=== PATIENT | male | born 1955 | race Caucasian/White ===

== ENCOUNTER 2019-11-19 14:30 | Outpatient (CLI) | payer BC, SELFPAY ==
[2019-11-19 14:45] LABS: Basophils Absolute Auto 0.1 K/mm3 (0.0-0.1); Basophils Percent Auto 0.6 % (0.2-1.2); Eosinophils Absolute Auto 0.4 K/mm3 (0-0.3); Eosinophils Percent Auto 4.7 % (0-4.4); Hematocrit 42.1 % (42.0-52.0); Hemoglobin 14.6 g/dL (14.0-18.0); Immature Granulocyte Absolute 0.04 K/mm3 (0.00-0.031); Immature Granulocyte Percent A 0.4 % (0-0.5); Lymphocytes Absolute Auto 1.89 K/mm3 (0.9-3.2); Lymphocytes Percent Auto 20.9 % (18.3-44.2); Mean Corpuscular HGB Conc 34.7 g/dl (32-36); Mean Corpuscular Hemoglobin 31.4 pg (26-34); Mean Corpuscular Volume 90.5 fl (80-100); Mean Platelet Volume 13.9 fl (7.4-10.4); Neutrophils Absolute Auto 5.6 K/mm3 (1.3-6.7); Neutrophils Percent Auto 62.4 % (45.5-73.1); Platelet Count Result 37 k/mm3 (150-375); Red Blood Count 4.65 M/mm3 (4.6-6.20); Red Cell Distribution Width 13.3 % (11.5-14.5)
[2019-11-19 16:48] LABS: Iron 131 ug/dL (49-181)
[2019-11-19 16:54] LABS: Alanine Aminotransferase 12 U/L (4-50); Albumin Level 4.2 g/dL (3.5-5.1); Alkaline Phosphatase 65 U/L (38-126); Anion Gap 5 mmol/L (8-16); Aspartate Amino Transferase 19 U/L (17-59); Bilirubin,Total 0.9 mg/dL (0.2-1.3); Blood Urea Nitrogen 16 mg/dL (9-20); Calcium 9.3 mg/dL (8.4-10.2); Carbon Dioxide 27 mmol/L (22-30); Chloride 106 mmol/L (98-107); Estimated Glomerular Filt Rate > 60; Glucose 93 mg/dL (75-110); Lactate Dehydrogenase 326 U/L (313-618); Sodium 138 mmol/L (137-145)
[2019-11-19 17:00] LABS: Percent Iron Saturation 44 % (20-50)
== END 2019-11-19 14:31 | disposition home or self-care (01) ==
PROVIDERS: PCP Family Medicine; Visit Provider Internal Medicine Hematology & Oncology
DX: D69.59 Other secondary thrombocytopenia (principal)
CPT/HCPCS: 36415; 80053; 82607; 82728; 83540; 83550; 83615; 85025

== ENCOUNTER 2019-11-27 08:23 | Outpatient (CLI) | payer BC, SELFPAY ==
--- NOTE | ~2019-11-27 | US_ITS ---
EXAMINATION: US abdomen complete EXAM DATE: 11/27/2019 09:04 INDICATION: Thrombocytopenia. TECHNIQUE: Multiple grayscale and Doppler images of the complete abdomen were obtained (by a technolo gist who performed the scan) and subsequently reviewed. There is no prior study for comparison. FINDINGS: The abdominal aorta is normal in caliber. Visualized portion IVC is patent. The pancreatic head a nd body are normal in appearance. The pancreatic tail is not visualized. The liver has normal echogenicity and contour. There are no focal liver lesions identified. There is no evidence of intrahepatic biliary duct dilation. Portal venous flow was seen in the hepatopedal , normal direction and has normal Doppler waveform. Common bile duct measures 6 mm, which is normal. The gallbladder wall is normal in thickness, with ex pected amount of distention. No sonographic evidence of pericholecystic fluid. There is no cholelit hiases. Technologist performing exam reports patient did not demonstrate sonographic Harding's sign. Please note that this sign is less reliable in patients who have received pain medication. Right kidney: There is normal contour and echogenicity. Renal cortical thinning. It measures 11.5 x 5 .3 x 6.1 centimeters. There are no focal renal lesions identified. There is no hydronephrosis. Left kidney: There is normal contour and echogenicity. Renal cortical thinning. It measures 10.1 x 4. 9 x 5.1 centimeters. There are no focal renal lesions identified. There is no hydronephrosis. The spleen measures 12.0 x 3.8 centimeters and is morphologically normal. IMPRESSION: 1. Mild bilateral renal cortical thinning, atrophy. 2. Normal spleen size. Reviewed, dictated and finalized at location A.
== END 2019-11-27 08:24 | disposition home or self-care (01) ==
PROVIDERS: PCP Family Medicine; Visit Provider Internal Medicine Hematology & Oncology
DX: D69.59 Other secondary thrombocytopenia (principal)
CPT/HCPCS: 76700

== ENCOUNTER 2019-12-27 14:56 | Outpatient (CLI) | payer BC, SELFPAY ==
[2019-12-27 15:12] LABS: Basophils Absolute Auto 0.1 K/mm3 (0.0-0.1); Basophils Percent Auto 0.6 % (0.2-1.2); Eosinophils Absolute Auto 0.4 K/mm3 (0-0.3); Eosinophils Percent Auto 4.6 % (0-4.4); Hematocrit 41.9 % (42.0-52.0); Hemoglobin 14.2 g/dL (14.0-18.0); Immature Granulocyte Absolute 0.02 K/mm3 (0.00-0.031); Immature Granulocyte Percent A 0.3 % (0-0.5); Lymphocytes Absolute Auto 1.99 K/mm3 (0.9-3.2); Lymphocytes Percent Auto 25.7 % (18.3-44.2); Mean Corpuscular HGB Conc 33.9 g/dl (32-36); Mean Corpuscular Volume 91.5 fl (80-100); Monocytes Absolute Auto 0.7 K/mm3 (0.1-0.6); Monocytes Percent Auto 9.3 % (2.6-8.5); Neutrophils Absolute Auto 4.6 K/mm3 (1.3-6.7); Neutrophils Percent Auto 59.5 % (45.5-73.1); Platelet Count Result 50 k/mm3 (150-375); Red Blood Count 4.58 M/mm3 (4.6-6.20); Red Cell Distribution Width 13.1 % (11.5-14.5); White Blood Count 7.8 K/mm3 (4.5-10.0)
[2019-12-27 16:48] LABS: Alanine Aminotransferase 14 U/L (4-50); Albumin Level 4.4 g/dL (3.5-5.1); Alkaline Phosphatase 55 U/L (38-126); Anion Gap 8 mmol/L (8-16); Aspartate Amino Transferase 22 U/L (17-59); Bilirubin,Total 0.6 mg/dL (0.2-1.3); Blood Urea Nitrogen 12 mg/dL (9-20); Calcium 9.3 mg/dL (8.4-10.2); Carbon Dioxide 27 mmol/L (22-30); Chloride 108 mmol/L (98-107); Estimated Glomerular Filt Rate > 60; Glucose 102 mg/dL (75-110); Sodium 143 mmol/L (137-145)
== END 2019-12-27 14:57 | disposition home or self-care (01) ==
LOC: ANHLAB 14:58
PROVIDERS: PCP Family Medicine; Visit Provider Internal Medicine Hematology & Oncology
DX: D69.59 Other secondary thrombocytopenia (principal)
CPT/HCPCS: 36415; 80053; 85025

== ENCOUNTER 2020-07-03 15:18 | Outpatient (CLI) | payer BC, SELFPAY ==
[2020-07-03 15:34] LABS: Basophils Absolute Auto 0.1 K/mm3 (0.0-0.1); Basophils Percent Auto 0.6 % (0.2-1.2); Eosinophils Absolute Auto 0.5 K/mm3 (0-0.3); Eosinophils Percent Auto 5.1 % (0-4.4); Hemoglobin 15.2 g/dL (14.0-18.0); Immature Granulocyte Absolute 0.02 K/mm3 (0.00-0.031); Immature Granulocyte Percent A 0.2 % (0-0.5); Immature Platelet Fraction Pct 19.5 % (0.9-11.2); Lymphocytes Absolute Auto 1.76 K/mm3 (0.9-3.2); Lymphocytes Percent Auto 19.8 % (18.3-44.2); Mean Corpuscular HGB Conc 34.5 g/dl (32-36); Mean Corpuscular Hemoglobin 33.9 pg (26-34); Mean Corpuscular Volume 98.2 fl (80-100); Mean Platelet Volume 13.3 fl (7.4-10.4); Monocytes Absolute Auto 0.8 K/mm3 (0.1-0.6); Neutrophils Absolute Auto 5.8 K/mm3 (1.3-6.7); Neutrophils Percent Auto 65.3 % (45.5-73.1); Platelet Count Result 39 k/mm3 (150-375); Red Blood Count 4.48 M/mm3 (4.6-6.20); Red Cell Distribution Width 13.1 % (11.5-14.5); White Blood Count 8.9 K/mm3 (4.5-10.0)
== END 2020-07-03 15:19 | disposition home or self-care (01) ==
LOC: ANHLAB 15:20
PROVIDERS: PCP Family Medicine; Visit Provider Internal Medicine Hematology & Oncology
DX: D69.59 Other secondary thrombocytopenia (principal)
CPT/HCPCS: 36415; 85025; 85055

== ENCOUNTER 2020-08-08 21:40 | Emergency (ER) | payer BC, SELFPAY ==
--- NOTE | ~2020-08-08 | XR_ITS ---
EXAMINATION: XR chest 2V DATE: 08/08/2020 22:37 INDICATION: Prior atrial fibrillation presenting with one day of palpitations. TECHNIQUE: PA and lateral views of the chest were obtained. COMPARISON: Chest radiograph dated 08/28/2015 FINDINGS: The lungs remain clear with no focal airspace opacities, pulmonary edema, pleural effusion or pneumot horax. The cardiomediastinal silhouette is normal. There are bridging osteophytes at multiple levels in the spine, consistent with diffuse idiopathic skeletal hyperostosis (DISH). Old anterior right six th and seventh rib fractures. IMPRESSION: 1. No acute cardiopulmonary disease. Reviewed, dictated and finalized at location A.
[2020-08-08 22:20] VITALS: BP 132/84; PULSE 66; RESP 18; TEMP 35.9; O2SAT 98
--- NOTE | 2020-08-08 22:25 | ECG_ITS ---
Measurements Intervals [place] Rate: 62 P: 58 CO: 199 QRS: -37 QRSD: 92 T: 21 QT: 404 QTc: 412 Interpretive Statements SINUS RHYTHM LEFT AXIS DEVIATION INCOMPLETE RIGHT BUNDLE BRANCH BLOCK POOR R WAVE PROGRESSION, ANTERIOR LEADS BORDERLINE ECG Electronically Signed On 08-09-2020 7:22:37 CDT by Benjamin Collier D.O.
[2020-08-08 23:27] LABS: Basophils Absolute Auto 0.1 K/mm3 (0.0-0.1); Basophils Percent Auto 0.6 % (0.2-1.2); Eosinophils Absolute Auto 0.4 K/mm3 (0-0.3); Eosinophils Percent Auto 4.6 % (0-4.4); Hemoglobin 14.9 g/dL (14.0-18.0); Immature Granulocyte Absolute 0.02 K/mm3 (0.00-0.031); Immature Granulocyte Percent A 0.2 % (0-0.5); Immature Platelet Fraction Pct 18.1 % (0.9-11.2); Lymphocytes Absolute Auto 1.73 K/mm3 (0.9-3.2); Lymphocytes Percent Auto 18.4 % (18.3-44.2); Mean Corpuscular HGB Conc 34.7 g/dl (32-36); Mean Corpuscular Hemoglobin 34.3 pg (26-34); Mean Corpuscular Volume 99.1 fl (80-100); Mean Platelet Volume 12.6 fl (7.4-10.4); Monocytes Percent Auto 10.1 % (2.6-8.5); Neutrophils Absolute Auto 6.2 K/mm3 (1.3-6.7); Neutrophils Percent Auto 66.1 % (45.5-73.1); Platelet Count Result 48 k/mm3 (150-375); Red Blood Count 4.34 M/mm3 (4.6-6.20); Red Cell Distribution Width 12.6 % (11.5-14.5); White Blood Count 9.4 K/mm3 (4.5-10.0)
[2020-08-08 23:35] LABS: INR 1.1; Prothrombin Time 14.9 Seconds (11.1-14.7)
[2020-08-08 23:36] LABS: Anion Gap 8 mmol/L (8-16); Blood Urea Nitrogen 12 mg/dL (9-20); Calcium 9.5 mg/dL (8.4-10.2); Carbon Dioxide 24 mmol/L (22-30); Chloride 107 mmol/L (98-107); Estimated CRCL calculation 72 ml/min; Estimated Glomerular Filt Rate > 60; Glucose 99 mg/dL (75-110); Partial Thromboplastin Time 27.8 SECONDS (22.3-36.8); Potassium 3.9 mmol/L (3.4-5.0); Sodium 139 mmol/L (137-145)
[2020-08-08 23:48] LABS: Troponin I < 0.012 ng/mL (0.000-0.034)
[2020-08-09] VITALS (10 sets, daily range): BP systolic 100–127; BP diastolic 68–86; PULSE 60–62; RESP 13–23; O2SAT 96–100
--- NOTE | 2020-08-09 01:18 | ED.GENADULT ---
HPI - General Adult General Chief complaint: Arrhythmia/Palpitations Stated complaint: palpations Time Seen by Provider: 08/09/20 00:58 History of Present Illness HPI narrative: Patient is 64-year-old gentleman presents the emergency department with chief complaint of palpitations. Patient reports that he has history of atrial fibrillation and reports that he felt as though he went into A. fib today. The patient took an extra dose of his metoprolol and subsequently it was still irregular but by the time he arrived to the emergency department and returned back to a baseline sinus rhythm. Patient states that he is not on anticoagulants due to thrombocytopenia reports that he is followed by cardiology with Dr. Baxter. The patient denies chest pain denies shortness of breath. Related Data Home Medications Medication Instructions Recorded Confirmed metoprolol succinate 50 mg 50 mg PO DAILY 10/12/19 10/16/19 tablet,extended release 24 hr Allergies Allergy/AdvReac Type Severity Reaction Status Date / Time No Known Allergies Allergy Verified 08/09/20 00:51 Review of Systems Review of Systems: Narrative: A 10 system review of systems was completed on the patient and is negative except for what is stated in the HPI. Nursing and ancillary documentation was reviewed. [facility] Past Medical History Medical History (Updated 08/09/20 @ 01:20 by Ezekiel Peacock MD) AF (paroxysmal atrial fibrillation) Atrial fibrillation medically converted BMI 29.0-29.9,adult Chronic ITP (idiopathic thrombocytopenia) Colon cancer screening Erectile dysfunction Hypertension Prostate cancer screening Prostate cancer screening Thrombocytopenia Surgical History Surgical History History of bone marrow biopsy Family History Family History Mother Family history of cardiovascular disease Father Malignant neoplasm of prostate Social History Social History Smoking status: Never smoker Second hand tobacco smoke exposure: No Alcohol intake: current Substance use: never Substance use type: does not use Gender identity (if verbalized by the patient): Male Exam Narrative: Exam Narrative: GENERAL: Well-appearing, well-nourished, and in no acute distress. HEAD: Normocephalic, atraumatic. EYES: PERRLA and EOMI. ENT: Nares clear, no rhinorrhea or epistaxis. Mucous membranes moist. NECK: Supple. CHEST: Clear to auscultation. No respiratory distress. HEART: Regular rate and rhythm. No murmur heard. Normal peripheral pulses. ABDOMEN: Soft, nontender, nondistended, normal active bowel sounds. EXTREMITIES: Normal range of motion. No edema. SKIN: Warm, dry, no rash. NEURO: No focal deficits. Alert and oriented x3. PSYCH: Normal mood and affect. Course Course Emergency Course: Patient has been in sinus rhythm since being in the emergency department. 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 Vital Signs Vital signs: Vital Signs Temperature 35.9 C L 08/08/20 22:20 Pulse Rate 66 08/08/20 22:20 Respiratory Rate 18 08/08/20 22:20 Blood Pressure 132/84 08/08/20 22:20 Pulse Oximetry 98 08/08/20 22:20 Temperature 35.9 C L 08/08/20 22:20 Pulse Rate 66 08/08/20 22:20 Respiratory Rate 18 08/08/20 22:20 Blood Pressure 132/84 08/08/20 22:20 Pulse Oximetry 98 08/08/20 22:20 Medical Decision Making Vital Signs Vital Signs: Vital Signs Temperature 35.9 C L 08/08/20 22:20 Pulse Rate 66 08/08/20 22:20 Respiratory Rate 18 08/08/20 22:20 Blood Pressure 132/84 08/08/20 22:20 Pulse Oximetry 98 08/08/20 22:20 Temperature 35.9 C L 08/08/20 22:20 Pulse Ra
== END 2020-08-09 02:03 | disposition home or self-care (01) ==
PROVIDERS: Emergency Provider Emergency Medicine; PCP Family Medicine
DX: I48.0 Paroxysmal atrial fibrillation (principal); R00.2 Palpitations; I10 Essential (primary) hypertension; D69.3 Immune thrombocytopenic purpura
CPT/HCPCS: 36415; 71046; 80048; 84484; 85025; 85055; 85610; 85730; 93005; 99284

== ENCOUNTER 2021-01-08 15:13 | Outpatient (CLI) | payer BC, SELFPAY ==
[2021-01-08 15:30] LABS: Basophils Absolute Auto 0.1 K/mm3 (0.0-0.1); Basophils Percent Auto 0.5 % (0.2-1.2); Eosinophils Absolute Auto 0.3 K/mm3 (0-0.3); Eosinophils Percent Auto 3.3 % (0-4.4); Hematocrit 43.2 % (42.0-52.0); Hemoglobin 14.8 g/dL (14.0-18.0); Immature Granulocyte Absolute 0.02 K/mm3 (0.00-0.031); Immature Granulocyte Percent A 0.2 % (0-0.5); Immature Platelet Fraction Pct 17.9 % (0.9-11.2); Lymphocytes Absolute Auto 1.65 K/mm3 (0.9-3.2); Lymphocytes Percent Auto 17.6 % (18.3-44.2); Mean Corpuscular HGB Conc 34.3 g/dl (32-36); Mean Corpuscular Hemoglobin 34.1 pg (26-34); Mean Corpuscular Volume 99.5 fl (80-100); Mean Platelet Volume 13.1 fl (7.4-10.4); Monocytes Absolute Auto 0.9 K/mm3 (0.1-0.6); Monocytes Percent Auto 9.3 % (2.6-8.5); Neutrophils Absolute Auto 6.5 K/mm3 (1.3-6.7); Neutrophils Percent Auto 69.1 % (45.5-73.1); Platelet Count Result 35 k/mm3 (150-375); Red Blood Count 4.34 M/mm3 (4.6-6.20); White Blood Count 9.4 K/mm3 (4.5-10.0)
== END 2021-01-08 15:14 | disposition home or self-care (01) ==
LOC: ANHLAB 15:14
PROVIDERS: PCP Family Medicine; Visit Provider Internal Medicine Hematology & Oncology
DX: D69.59 Other secondary thrombocytopenia (principal)
CPT/HCPCS: 36415; 85025; 85055

== ENCOUNTER 2021-07-16 14:17 | Outpatient (CLI) | payer OTHER, SELFPAY ==
[2021-07-16 14:42] LABS: Basophils Percent Auto 0.4 % (0.2-1.2); Eosinophils Absolute Auto 0.2 K/mm3 (0-0.3); Eosinophils Percent Auto 2.9 % (0-4.4); Hematocrit 40.9 % (42.0-52.0); Hemoglobin 14.1 g/dL (14.0-18.0); Immature Granulocyte Absolute 0.02 K/mm3 (0.00-0.031); Immature Granulocyte Percent A 0.3 % (0-0.5); Immature Platelet Fraction Pct 18.6 % (0.9-11.2); Lymphocytes Absolute Auto 1.42 K/mm3 (0.9-3.2); Lymphocytes Percent Auto 20.3 % (18.3-44.2); Mean Corpuscular HGB Conc 34.5 g/dl (32-36); Mean Corpuscular Hemoglobin 34.6 pg (26-34); Mean Corpuscular Volume 100.5 fl (80-100); Mean Platelet Volume 12.8 fl (7.4-10.4); Monocytes Absolute Auto 0.7 K/mm3 (0.1-0.6); Monocytes Percent Auto 9.9 % (2.6-8.5); Neutrophils Absolute Auto 4.6 K/mm3 (1.3-6.7); Neutrophils Percent Auto 66.2 % (45.5-73.1); Platelet Count Result 37 k/mm3 (150-375); Red Blood Count 4.07 M/mm3 (4.6-6.20); Red Cell Distribution Width 13.1 % (11.5-14.5)
== END 2021-07-16 14:18 | disposition home or self-care (01) ==
LOC: ANHLAB 14:20
PROVIDERS: PCP Family Medicine; Visit Provider Internal Medicine Hematology & Oncology
DX: D69.59 Other secondary thrombocytopenia (principal)
CPT/HCPCS: 36415; 85025; 85055

== ENCOUNTER 2021-11-30 09:42 | Outpatient (CLI) | payer OTHER, SELFPAY ==
[2021-11-30 10:01] LABS: Hematocrit 45.1 % (42.0-52.0); Hemoglobin 15.5 g/dL (14.0-18.0); Immature Platelet Fraction Pct 28.8 % (0.9-11.2); Mean Corpuscular HGB Conc 34.4 g/dl (32-36); Mean Corpuscular Hemoglobin 36.6 pg (26-34); Mean Corpuscular Volume 106.6 fl (80-100); Mean Platelet Volume 13.2 fl (7.4-10.4); Platelet Count Result 51 k/mm3 (150-375); Red Blood Count 4.23 M/mm3 (4.6-6.20); White Blood Count 4.8 K/mm3 (4.5-10.0)
[2021-11-30 10:21] LABS: Anion Gap 12 mmol/L (8-16); Blood Urea Nitrogen 14 mg/dL (9-20); Calcium 8.9 mg/dL (8.4-10.2); Carbon Dioxide 26 mmol/L (22-30); Chloride 98 mmol/L (98-107); Estimated Glomerular Filt Rate > 60; Glucose 133 mg/dL (65-110); Potassium 4.5 mmol/L (3.4-5.0); Sodium 136 mmol/L (137-145)
== END 2021-11-30 09:43 | disposition home or self-care (01) ==
PROVIDERS: PCP Family Medicine; Visit Provider Internal Medicine Cardiovascular Disease
DX: I95.0 Idiopathic hypotension (principal); E86.0 Dehydration; K92.1 Melena
CPT/HCPCS: 36415; 80048; 85027; 85055

== ENCOUNTER 2022-01-19 16:26 | Outpatient (CLI) | payer OTHER, SELFPAY ==
[2022-01-19 17:21] LABS: Basophils Percent Auto 0.6 % (0.2-1.2); Eosinophils Absolute Auto 0.1 K/mm3 (0-0.3); Eosinophils Percent Auto 1.5 % (0-4.4); Hematocrit 40.9 % (42.0-52.0); Hemoglobin 13.8 g/dL (14.0-18.0); Immature Granulocyte Absolute 0.02 K/mm3 (0.00-0.031); Immature Granulocyte Percent A 0.3 % (0-0.5); Immature Platelet Fraction Pct 24.1 % (0.9-11.2); Lymphocytes Absolute Auto 1.65 K/mm3 (0.9-3.2); Lymphocytes Percent Auto 22.7 % (18.3-44.2); Mean Corpuscular HGB Conc 33.7 g/dl (32-36); Mean Corpuscular Hemoglobin 36.5 pg (26-34); Mean Corpuscular Volume 108.2 fl (80-100); Monocytes Absolute Auto 1.3 K/mm3 (0.1-0.6); Monocytes Percent Auto 17.5 % (2.6-8.5); Neutrophils Absolute Auto 4.2 K/mm3 (1.3-6.7); Neutrophils Percent Auto 57.4 % (45.5-73.1); Platelet Count Result 57 k/mm3 (150-375); Red Blood Count 3.78 M/mm3 (4.6-6.20); Red Cell Distribution Width 14.3 % (11.5-14.5); White Blood Count 7.3 K/mm3 (4.5-10.0)
[2022-01-19 17:32] LABS: Alanine Aminotransferase 56 U/L (6-50); Albumin Level 3.9 g/dL (3.5-5.1); Alkaline Phosphatase 83 U/L (38-126); Anion Gap 2 mmol/L (8-16); Aspartate Amino Transferase 67 U/L (17-59); Bilirubin,Total 0.8 mg/dL (0.2-1.3); Blood Urea Nitrogen 11 mg/dL (9-20); Calcium 8.6 mg/dL (8.4-10.2); Carbon Dioxide 26 mmol/L (22-30); Chloride 104 mmol/L (98-107); Estimated Glomerular Filt Rate > 60; Glucose 93 mg/dL (65-110); Magnesium 1.9 mg/dL (1.6-2.3); Sodium 132 mmol/L (137-145)
[2022-01-19 17:55] LABS: Macrocytosis 1+ (NORMAL); Platelet Estimate Decreased (Adequate)
[2022-01-19 17:57] LABS: Ovalocytes 1+ (NORMAL)
[2022-01-19 17:58] LABS: Anisocytosis 1+ (NORMAL); Schistocytes None Seen (NORMAL)
--- NOTE | 2022-01-29 12:42 | PM.IMPN ---
Progress Note: A&P Assessment and Plan (1) Chronic idiopathic thrombocytopenia: Code(s): D69.3 - Immune thrombocytopenic purpura Status: Acute Assessment and Plan: Stable (2) Paroxysmal atrial fibrillation: Code(s): I48.0 - Paroxysmal atrial fibrillation Status: Acute Assessment and Plan: Stable Subjective Date/time seen: 01/29/22 12:42 Patient was seen during the morning rounds today. Patient is feeling better. No shortness of breaths or chest pain. Mood stable Exam Narrative: Const:?? General: comfortab le and no acute di stress HENMT:?? Mouth: Yes moist m ucous membranes Eyes:?? General: appearanc e normal, both eye s and all related structures? Sclera : sclerae normal Neck:?? Neck: supple Resp:?? Effort & Inspectio n: normal respirat ory effort? Auscul tation: clear to a uscultation bilate rally Cardio:?? Rate: regular rate ? Rhythm: regular rhythm? Heart soun ds: no murmurs GI:?? GI Palp: Yes Soft to palpation and N o Tenderness to pa lpation present (G I) Skin:?? General skin exam: normal color Neuro:?? Speech: normal spe ech? Motor exam (n euro): 5/5 motor s trength present th roughout Extrem:?? General: normal to inspection Psych:?? Mental Status: men elvin status grossly normal? Affect: n ormal affect Quality 01/29/2022 Patient is feeling much better now. Patient heart rate is controlled. Patient platelets are stable. Plan is to monitor closely.
== END 2022-01-19 16:27 | disposition home or self-care (01) ==
LOC: ANHLAB 16:28
PROVIDERS: PCP Family Medicine; Visit Provider Nurse Practitioner Adult Health
DX: R55 Syncope and collapse (principal)
CPT/HCPCS: 36415; 80053; 83735; 85025; 85055

== ENCOUNTER 2022-01-28 10:26 | Inpatient (IN) | payer OTHER, SELFPAY ==
[2022-01-28] VITALS (21 sets, daily range): BP systolic 107–133; BP diastolic 37–86; PULSE 61–84; RESP 15–23; TEMP 36.6–37.4; O2SAT 95–100; BMI 25.2
--- NOTE | 2022-01-28 | ECHO_ITS ---
Patient Info Name: Reji Sanon Age: 66 years : 1955 Gender: Male Ht: 71 in Wt: 180 lbs BSA: 2.03 m2 HR: 78 bpm BP: 121 / 80 mmHg Heart Rhythm: Sinus Rhythm Technical Quality: Good Exam Date: 01/28/2022 9:33 AM Exam Location: [facility] Pulmonary Exam Room: [facility] Patient Status: Inpatient Admit Date: 01/28/2022 Staff Ordering Physician: Chacorta Rodriguez MD (herminia/rose) Allergist: Petra Oviedo RCS Attending Provider: Chacorta Rodriguez MD (herminia/rose) Referring Physician: Michael CABA; Exam Type: CA echo dop color flow w con Study Info Indications - v tach Complete two-dimensional, color flow and Doppler transthoracic echocardiogram is performed with contrast to opacify the left ventricle and to improve the deliniation of the left ventricle endocardial borders. Contrast/Agitated Saline Contrast/Ag. Saline: Definity Amount: 2.00 ml Administered By: Maria Esther Mancilla RN Existing IV Access: Yes IV Access Condition: patent with no signs of infiltration Summary 1. Left ventricular systolic function is normal, estimated at 65-70%. 2. Right ventricular systolic function is normal. 3. Right atrial chamber dimension is mildly enlarged. 4. There is mild tricuspid valve regurgitation. Left Ventricle Left ventricular chamber dimension is normal. Left ventricular systolic function is normal, estimated at 65-70%. There is no increased left ventricular wall thickness. The left ventricular diastolic function is normal. Right Ventricle Right ventricular chamber dimension is normal. Right ventricular systolic function is normal. Left Atria Left atrial chamber dimension is normal. Right Atria Right atrial chamber dimension is mildly enlarged. Atrial Septum Intact interatrial septum visualized by color flow imaging. Aortic Valve The aortic valve is trileaflet. There is no aortic valve stenosis. There is no aortic valve regurgitation. Pulmonic Valve The pulmonic valve is not well visualized. Mitral Valve The mitral valve has normal leaflets. There is no mitral valve stenosis. There is trace mitral valve regurgitation. Tricuspid Valve The tricuspid valve leaflets are normal. There is no significant tricuspid valve stenosis. There is mild tricuspid valve regurgitation. Pericardium/Pleural There is no pericardial effusion. Inferior Vena Cava Normal inferior vena cava with >50% collapse upon inspiration consistent with normal right atrial pressure, 3 mmHg. Aorta The aortic root size at the sinus of Valsalva is normal. Left Ventricular Outflow Tract Name Value Normal LVOT 2D LVOT Diameter 1.95 cm LVOT Doppler LVOT Peak Gradient 4 mmHg LVOT Mean Gradient 2 mmHg LVOT VTI 20.47 cm LVOT VTI/AV VTI Ratio 0.85 LVOT Stroke Volume 61.29 ml LVOT CO 11.85 l/min LVOT CI 5.84 L/min/m2 Pulmonic Valve
--- NOTE | ~2022-01-28 | NM_ITS ---
EXAMINATION: NM miguel stress w perfusion DATE: 01/28/2022 14:15 INDICATION: Ventricular tachycardia. TECHNIQUE: Rest images were obtained following intravenous administration of 9.423 mCi Tc99m tetrofos min (Myoview). The patient was infused intravenously with Lexiscan (regadenoson). Then, 29.942 mCi Tc 99m tetrofosmin (Myoview) was administered intravenously, and stress images were obtained. Data was r econstructed into short axis and horizontal and vertical long axis SPECT images. Gated SPECT images w ere also obtained. COMPARISON: None. FINDINGS: There is no definite reversible or fixed perfusion abnormality to suggest ischemia or infar ction. There is no segmental wall motion abnormality. Left ventricular ejection fraction measures > 70%. IMPRESSION: 1. No definite ischemia or infarct. 2. Normal left ventricular ejection fraction measuring >70%. Reviewed, dictated and finalized at location A. M MECHANIC
[2022-01-28 07:57] LABS: Basophils Percent Auto 0.5 % (0.2-1.2); Eosinophils Absolute Auto 0.2 K/mm3 (0-0.3); Eosinophils Percent Auto 2.3 % (0-4.4); Hematocrit 40.7 % (42.0-52.0); Hemoglobin 13.9 g/dL (14.0-18.0); Immature Granulocyte Absolute 0.02 K/mm3 (0.00-0.031); Immature Granulocyte Percent A 0.3 % (0-0.5); Lymphocytes Percent Auto 13.8 % (18.3-44.2); Mean Corpuscular HGB Conc 34.2 g/dl (32-36); Mean Corpuscular Hemoglobin 35.6 pg (26-34); Mean Corpuscular Volume 104.4 fl (80-100); Monocytes Absolute Auto 0.8 K/mm3 (0.1-0.6); Monocytes Percent Auto 11.6 % (2.6-8.5); Neutrophils Absolute Auto 4.7 K/mm3 (1.3-6.7); Neutrophils Percent Auto 71.5 % (45.5-73.1); Red Cell Distribution Width 13.9 % (11.5-14.5); White Blood Count 6.5 K/mm3 (4.5-10.0)
[2022-01-28 08:03] LABS: Anion Gap 4 mmol/L (8-16); Blood Urea Nitrogen 9 mg/dL (9-20); Calcium 8.5 mg/dL (8.4-10.2); Carbon Dioxide 25 mmol/L (22-30); Chloride 111 mmol/L (98-107); Estimated CRCL calculation 78 ml/min; Estimated Glomerular Filt Rate > 60; Glucose 96 mg/dL (65-110); Potassium 3.5 mmol/L (3.4-5.0); Sodium 140 mmol/L (137-145)
[2022-01-28 08:05] LABS: INR 1.2; Prothrombin Time 14.8 Seconds (11.1-14.7)
--- NOTE | 2022-01-28 08:06 | SUR.PREOP ---
notified of low platelet count, re draw requested
[2022-01-28 08:07] LABS: Platelet Count Result 6 k/mm3 (150-375)
[2022-01-28 08:09] LABS: Anisocytosis 1+ (NORMAL); Macrocytosis 1+ (NORMAL); Platelet Estimate Decreased (Adequate)
[2022-01-28 08:11] LABS: Schistocytes None Seen (NORMAL)
[2022-01-28 08:22] LABS: Platelet Count Result 6 k/mm3 (150-375)
--- NOTE | 2022-01-28 08:23 | SUR.PREOP ---
Pt arrived to floor with lifevest and monitor technician in place. Kept in place until physician sees.
--- NOTE | 2022-01-28 09:15 | PM.IMHP ---
H&P: HPI History of Present Illness Date/Time: 01/28/22 09:15 Chief Complaint: Acute ITP Narrative: Patient is a 66-year-old male with a history of atrial fibrillation and ITP who presented today for a cardiac catheterization. This is a patient of Dr. Baxter's. Patient was referred for coronary angiography for sustained VT and syncope. He is currently wearing a Life Vest. He is scheduled to see Dr. Everett on 02/01 for EP evaluation. Patient's last platelet count was 56, however this morning, platelet count is 6. Labs repeated which confirmed platelet count of 6. Discussed with Dr. Robles and Dr. Wallace. Will have patient admitted for acute ITP. Patient currently denies chest pain, palpitations, shortness of breath, lightheadedness, dizziness. States he feels okay. Review of Systems Review of Systems: 12-point ROS obtained. Negative, unless stated in HPI. [facility] Past Medical History Medical History (Updated 01/28/22 @ 09:24 by Chacorta Rodriguez MD) AF (paroxysmal atrial fibrillation) Atrial fibrillation medically converted BMI 29.0-29.9,adult Chronic ITP (idiopathic thrombocytopenia) Colon cancer screening Erectile dysfunction Hypertension Prostate cancer screening Prostate cancer screening Thrombocytopenia Surgical History Surgical History History of bone marrow biopsy Family History Family History Mother Family history of cardiovascular disease Father Malignant neoplasm of prostate Social History Social History Smoking status: Never smoker Second hand tobacco smoke exposure: No Alcohol intake: current Alcohol use details: consumes 2 beers or glasses of wine occasionally Substance use: never Substance use type: does not use Gender identity (if verbalized by the patient): Male Meds Home Medications and Allergies Home Medications Medication Instructions Recorded Confirmed Type metoprolol tartrate 25 mg tablet 25 mg PO PRN PRN Increased Heart 01/27/22 01/28/22 History Rate Allergy (diphenhydramine) 25 mg PO PRN Allergies 01/28/22 01/28/22 History Allergies Allergy/AdvReac Type Severity Reaction Status Date / Time No Known Allergies Allergy Verified 01/28/22 07:47 Vital Signs Vital Signs - 24 hr 01/28/22 07:26 Temperature 36.6 C Pulse Rate 65 Respiratory Rate 17 Blood Pressure 121/80 Pulse Oximetry 100 Oxygen Delivery Room Air Exam Const: General: comfortable and no acute distress HENMT: Mouth: Yes moist mucous membranes Eyes: General: appearance normal, both eyes and all related structures Sclera: sclerae normal Neck: Neck: supple Resp: Effort & Inspection: normal respiratory effort Auscultation: clear to auscultation bilaterally Cardio: Rate: regular rate Rhythm: regular rhythm Heart sounds: no murmurs GI: GI Palp: Yes Soft to palpation and No Tenderness to palpation present (GI) Skin: General skin exam: normal color Neuro: Speech: normal speech Motor exam (neuro): 5/5 motor strength present throughout Extrem: General: normal to inspection Psych: Mental Status: mental status grossly normal Affect: normal affect H&P: Results Labs Labs: Short CBC 01/28/22 01/28/22 Range/Units 07:24 08:12 WBC 6.5 (4.5-10.0) K/mm3 Hgb 13.9 L (14.0-18.0) g/dL Hct 40.7 L (42.0-52.0) % Plt Count 6 L* D 6 L* (150-375) k/mm3 [facility] 01/28/22 07:24 Sodium 140 Potassium 3.5 Chloride 111 H Carbon Dioxide 25 BUN 9 Creatinine 0.90 Glucose 96 Calcium 8.5 Assessment and Plan Assessment and plan (1) Acute ITP: Code(s): 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 Dr. Wallace
--- NOTE | 2022-01-28 09:26 | EST_ITS ---
Patient Info Name: Reji Sanon Age: 66 years : 1955 Gender: Male Ht: 71 in Wt: 160 lbs BSA: 1.91 m2 HR: 65 bpm BP: 132 / 79 mmHg Heart Rhythm: Sinus Rhythm Exam Date: 01/28/2022 1:24 PM Exam Location: [facility] Stress Patient Status: Outpatient Admit Date: 01/28/2022 Staff Ordering Physician: Chacorta Rodriguez MD Attending Provider: Chacorta Rodriguez MD Exercise Technologist: Pat Crews, EVERETTE Nurse: maximo mcmahan Exam Type: CA stress miguel w NM Study Info Indications R55 - Syncope and collapse A regadenoson stress test was performed. Summary 1. No abnormal ST/T wave changes diagnostic of ischemia with Lexiscan. 2. Please correlate with nuclear medicine images, reported separately. Protocol: Lexiscan Stress ECG Details Stage: REST Duration (min): 1 min : 32 sec HR (bpm): 64 SBP (mmHg): 132 DBP (mmHg): 79 Stage: REST Duration (min): 5 min : 36 sec HR (bpm): 61 SBP (mmHg): 132 DBP (mmHg): 79 Stage: STAGE 1 Duration (min): 1 min : 0 sec HR (bpm): 101 SBP (mmHg): 143 DBP (mmHg): 82 Stage: RECOVERY Duration (min): 1 min : 0 sec HR (bpm): 93 SBP (mmHg): 143 DBP (mmHg): 82 Stage: RECOVERY Duration (min): 2 min : 0 sec HR (bpm): 87 SBP (mmHg): 143 DBP (mmHg): 82 Stage: RECOVERY Duration (min): 3 min : 0 sec HR (bpm): 83 SBP (mmHg): 134 DBP (mmHg): 78 Stage: RECOVERY Duration (min): 3 min : 24 sec HR (bpm): 85 SBP (mmHg): 134 DBP (mmHg): 78 Rest HR: 61 bpm Peak HR: 101 bpm Rest Sys BP: 132 mmHg Peak Sys BP: 143 mmHg Max Pred HR: 156 bpm % Max Pred HR: 65 % Target HR: 133 bpm Max RPP: 14,443 bpm*mmHg BP Response: Normal blood pressure response Total Time: 1 min : 0 sec Rest Farah BP: 79 mmHg Peak Farah BP: 82 mmHg Total Dose: 0.4 mg Resting ECG Sinus rhythm. Incomplete right bundle branch block. Stress ECG Sinus tachycardia. Incomplete right bundle branch block. No abnormal ST/T wave changes diagnostic of ischemia with Lexiscan. Arrhythmias None. Report Signatures
[2022-01-28] MEDS: methylPREDNISolone SOD SUCC 125 MG VIAL IV PUSH ×2 (09:32→21:22)
[2022-01-28] MEDS: SODIUM CHLORIDE 0.9% IV 250 ML 30 ML IV CONT (09:33)
[2022-01-28] MEDS: PERFLUTREN LIPID MICROSPHERES 1.5 ML VIAL DILUTED TO 10 ML TOTAL VOLUME IV PUSH (09:33)
--- NOTE | 2022-01-28 11:28 | SUR.PREOP ---
Patient's left heart cath procedure was cancelled per Dr. Rodriguez, patient had critical platelet count of 6. Patient is being admitted per Dr. Rodriguez as IMU patient. At 901am patient was admitted as IMU status patient. Patient is in [facility] until IMU bed becomes available. Please see documentation in PCS as patient is no longer an outpatient procedure patient.
--- NOTE | 2022-01-28 11:44 | ADMGEN ---
This patient, Reji Sanon, was admitted to [facility]. Patient/family oriented to hospital policies and general routines including ID bracelet, bed and alarms, visiting hours, pain management, procedures, bathroom and other care routines, personal items, smoking policy, room service/diet, and visiting hours. Information on how to activate the Rapid Response Team has been discussed. Patient/Family are encouraged to report perceived risks to care and to ask questions if they do not understand what they are told or what they should do.
--- NOTE | 2022-01-28 12:33 | PC.NURSE ---
At approx 1225 patient was transported to radiology for lexiscan stress test. He was on transport monitor and lifevest.
--- NOTE | 2022-01-28 18:06 | PC.NURSE ---
This patient, Reji Sanon, was received from [facility] on 01/28/22 at 1725. Patient/family oriented to unit policies and routines
--- NOTE | 2022-01-28 23:50 | WPDCN ---
Assessment and Plan Assessment and plan (1) Chronic idiopathic thrombocytopenia: Code(s): D69.3 - Immune thrombocytopenic purpura Status: Acute Assessment and Plan: Acute on chronic ITP. Dr. Wallace has been consulted and the patient has been transfused 2 units of platelets and has also been started on methylprednisolone 125 milligrams b.i.d.. Initiate fall and bleeding precautions. Repeat labs in a.m. (2) Ventricular tachycardia: Code(s): I47.20 - Ventricular tachycardia, unspecified Status: Acute Assessment and Plan: Currently wearing a LifeVest. Plan Thank you for allowing us to participate in this patient's care. Please do not hesitate to contact us with any questions. Supervising physician for this medical consultation is Dr. Angle Frias. HPI Data of Consult Date/Time: 01/28/22 23:50 Requesting Physician: Chacorta Rordiguez MD Consult Narrative Reason for consult: Thrombocytopenia. Narrative: This is a 66-year-old male with chronic thrombocytopenia, single episode of atrial fibrillation not on anticoagulation due to the thrombocytopenia, and cardiomyopathy whom the hospitalist service has been consulted after he was found to have significant thrombocytopenia. This has been an ongoing issue for this patient and he was initially evaluated for such by Dr. Migue Sheth in 2016. Bone marrow biopsy showed normal cellular marrow with some dysmegakaryopoiesis with normal cytogenetics and liver spleen scan showed a normal spleen. His platelet count had been steady between 40,000 and 50,000 and he is now being followed by Dr. Wallace. Today he presented for cardiac catheterization for evaluation of sustained ventricular tachycardia noted on event monitor which he has been wearing recently due to multiple, syncopal episodes the last several weeks. He is currently wearing a life vest and is scheduled to see Dr. Everett at [facility] for EP evaluation on 02/01/2022. Labs drawn this morning prior to the scheduled procedure showed a platelet count of less than 6000, confirmed on repeat draw, and he has been admitted in this setting for further treatment (he has been started on Solu-Medrol and was given 2 units of platelets) and close monitoring. Luckily he has not had any significant bleeding with these syncopal episodes the last few weeks. He does bruise easily and it sounds like it is not unusual for him to have scattered purpura and petechiae which resolved within a couple of days. He has not had any episodes of epistaxis, hematemesis, hemoptysis, melena, hematochezia, or hematuria. At the time my evaluation he has no complaints. Review of Systems Review of Systems: Twelve systems were reviewed and are negative except for as per [facility] Past Medical History Medical History Chronic idiopathic thrombocytopenia Erectile dysfunction Hypertension Paroxysmal atrial fibrillation Reported single episode, not on anticoagulation due to chronic thrombocytopenia. 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 Family History Family History (Updated 01/28/22 @ 13:48 by Cora Katz PA-C) Mother Family history of cardiovascular disease Chronic obstructive pulmonary disease Father Malignant neoplasm of prostate Coronary artery disease Cerebrovascular accident Diabetes mellitus Heart disease Social History Social History (Updated 01/28/22 @ 13:49 by Cora Katz PA-C) Social History: Surrogate medical decision maker: Code status: Smoking status: Never smoker Second hand tobacco smoke exposure: Yes (mother used to smoke) Alcohol intake: current Drinks per week: 21 Alcohol use details: Averages 3 glasses of wine per nigh
[2022-01-29] VITALS: PULSE 60; PULSE 84; RESP 17; O2SAT 98
[2022-01-29 02:32] LABS: Hematocrit 40.3 % (42.0-52.0); Hemoglobin 14.3 g/dL (14.0-18.0); Immature Granulocyte Absolute 0.02 K/mm3 (0.00-0.031); Immature Granulocyte Percent A 0.3 % (0-0.5); Immature Platelet Fraction Pct 17.2 % (0.9-11.2); Lymphocytes Absolute Auto 0.38 K/mm3 (0.9-3.2); Lymphocytes Percent Auto 6.6 % (18.3-44.2); Mean Corpuscular HGB Conc 35.5 g/dl (32-36); Mean Corpuscular Hemoglobin 37.1 pg (26-34); Mean Corpuscular Volume 104.7 fl (80-100); Mean Platelet Volume 11.9 fl (7.4-10.4); Monocytes Absolute Auto 0.1 K/mm3 (0.1-0.6); Monocytes Percent Auto 1.4 % (2.6-8.5); Neutrophils Absolute Auto 5.3 K/mm3 (1.3-6.7); Neutrophils Percent Auto 91.7 % (45.5-73.1); Platelet Count Result 54 k/mm3 (150-375); Red Blood Count 3.85 M/mm3 (4.6-6.20); Red Cell Distribution Width 13.4 % (11.5-14.5); White Blood Count 5.8 K/mm3 (4.5-10.0)
[2022-01-29 02:40] LABS: Alanine Aminotransferase 35 U/L (6-50); Albumin Level 3.6 g/dL (3.5-5.1); Alkaline Phosphatase 84 U/L (38-126); Anion Gap 6 mmol/L (8-16); Aspartate Amino Transferase 32 U/L (17-59); Bilirubin,Total 0.9 mg/dL (0.2-1.3); Blood Urea Nitrogen 9 mg/dL (9-20); Calcium 8.6 mg/dL (8.4-10.2); Carbon Dioxide 23 mmol/L (22-30); Chloride 109 mmol/L (98-107); Estimated CRCL calculation 98 ml/min; Estimated Glomerular Filt Rate > 60; Glucose 150 mg/dL (65-110); INR 1.2; Magnesium 1.9 mg/dL (1.6-2.3); Potassium 3.9 mmol/L (3.4-5.0); Prothrombin Time 14.8 Seconds (11.1-14.7); Sodium 138 mmol/L (137-145)
[2022-01-29 04:00] VITALS: BP 114/69; PULSE 54; PULSE 60; RESP 18; TEMP 36.6; O2SAT 98
[2022-01-29 04:48] LABS: Thyroid Stimulating Hormone Reflex 0.632 uIU/mL (0.465-4.68)
[2022-01-29 08:00] VITALS: PULSE 106
[2022-01-29] MEDS: methylPREDNISolone SOD SUCC 125 MG VIAL IV PUSH (08:12)
[2022-01-29 08:25] VITALS: BP 120/71; PULSE 64; RESP 16; TEMP 36.2; O2SAT 100
--- NOTE | 2022-01-29 11:04 | PM.DS ---
DS: Admitting Diagnosis Discharge Date 01/29/2022 Admitting Diagnosis Acute ITP DS: Discharge Diagnosis Discharge Diagnosis (1) Paroxysmal atrial fibrillation: Code(s): I48.0 - Paroxysmal atrial fibrillation Status: Acute (2) Chronic idiopathic thrombocytopenia: Code(s): D69.3 - Immune thrombocytopenic purpura Status: Acute (3) Ventricular tachycardia: Code(s): I47.20 - Ventricular tachycardia, unspecified Status: Acute DS: Summary Hospital Course Reason for hospitalization: Acute ITP Hospital Course: Patient presented on 01/28/2022 as an outpatient for an elective cardiac cath. Preop labs showed platelet count of 6, was previously in the 50s. Cardiac cath cancelled. After discussing with Dr. Wallace, patient admitted for acute ITP and was treated with Solumedrol. Echocardiogram and Lexiscan were done which showed no significant abnormalities. No plans for invasive cardiac evaluation. Platelet count improved to 54. Status at Discharge Functional status at discharge: independent ambulation Overall status at discharge: patient is back to baseline Time Spent with Patient Time attestation: Total time spent providing and/or coordinating discharge services: Exam Const: General: comfortable and no acute distress HENMT: Mouth: Yes moist mucous membranes Eyes: General: appearance normal, both eyes and all related structures Sclera: sclerae normal Neck: Neck: supple Resp: Effort & Inspection: normal respiratory effort Auscultation: clear to auscultation bilaterally Cardio: Rate: regular rate Rhythm: regular rhythm Heart sounds: no murmurs Skin: General skin exam: normal color Neuro: Motor exam (neuro): 5/5 motor strength present throughout Extrem: General: normal to inspection Psych: Mental Status: mental status grossly normal DS: Data Data Completed and Pending Labs on day of discharge: Labs from last 24 hours 01/29/22 01/29/22 01/29/22 02:25 02:25 02:25 WBC 5.8 RBC 3.85 L Hgb 14.3 Hct 40.3 L MCV 104.7 H MCH 37.1 H MCHC 35.5 RDW 13.4 Plt Count 54 L D MPV 11.9 H Immature Gran % (Auto) 0.3 Neut % (Auto) 91.7 H Lymph % (Auto) 6.6 L [place] % (Auto) 1.4 L Eos % (Auto) 0.0 Baso % (Auto) 0.0 L Lymph # (Auto) 0.38 L [place] # (Auto) 0.1 Eos # (Auto) 0.0 Baso # (Auto) 0.0 Abs Immat Gran (auto) 0.02 Absolute Neuts (auto) 5.3 Absolute Nucleated RBC 0.0 Nucleated RBC % 0.0 % Immature Plt Fraction 17.2 H PT 14.8 H INR 1.2 APTT 27.0 Sodium 138 Potassium 3.9 Chloride 109 H Carbon Dioxide 23 Anion Gap 6 L BUN 9 Creatinine 0.70 Estim Creat Clear Calc 98 Estimated GFR > 60 Glucose 150 H Calcium 8.6 Magnesium 1.9 Total Bilirubin 0.9 AST 32 ALT 35 Alkaline Phosphatase 84 Total Protein 7.0 Albumin 3.6 TSH (Reflex) Blood Type Antibody Screen 01/29/22 01/28/22 02:25 07:24 WBC RBC Hgb Hct MCV MCH MCHC RDW Plt Count MPV Immature Gran % (Auto) Neut % (Auto) Lymph % (Auto) [place] % (Auto) Eos % (Auto) Baso % (Auto) Lymph # (Auto) [place] # (Auto) Eos # (Auto) Baso # (Auto) Abs Immat Gran (auto) Absolute Neuts (auto) Absolute Nucleated RBC Nucleated RBC % % Immature Plt Fraction PT INR APTT Sodium Potassium Chloride Carbon Dioxide Anion Gap BUN Creatinine Estim Creat Clear Calc Estimated GFR Glucose Calcium Magnesium Total Bilirubin AST ALT Alkaline Phosphatase Total Protein Albumin TSH (Reflex) 0.632 Blood Type A Positive Antibody Screen Negative Discharge Plan Discharge Attending physician on discharge: Chacorta Rodriguez Consulting providers: Ike Wallace ; Angle Frias Discharging Clinician: Chacorta Rodriguez Anticipated Discharge Date/Time: 01/29/22 11:02 Patient Disposi
--- NOTE | 2022-01-29 13:17 | PC.NURSE ---
On 01/29/22, the student, [Juhi Aviles], provided care and completed [facility] documentation on this patient. I have reviewed the student's documentation and agree with the findings.
--- NOTE | 2022-03-04 18:14 | PDONCCN ---
HPI - Date of Consult Date/Time: 03/04/22 18:14 Requesting Physician: Chacorta Rodriguez MD Primary Care Provider: Lizette Sewell, - Consult Narrative Reason for consult: Thrombocytopenia. Narrative: Reji Sanon is a 66 year old male Pt was discharged prior to consultation [facility] Medical History: Medical History (Last Reviewed 02/11/22 @ 11:43 by Shani Erwin [facility]) Chronic idiopathic thrombocytopenia Erectile dysfunction Hypertension Paroxysmal atrial fibrillation Reported single episode, not on anticoagulation due to chronic thrombocytopenia. 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 Family History: Family History (Last Reviewed 02/11/22 @ 11:43 by Shani Erwin [facility]) Mother Family history of cardiovascular disease Chronic obstructive pulmonary disease Father Malignant neoplasm of prostate Coronary artery disease Cerebrovascular accident Diabetes mellitus Heart disease - Social History Social History: Social History (Last Reviewed 02/11/22 @ 11:43 by Shani Erwin [facility]) Alcohol Use: Alcohol intake: current Drinks per week: 21 Alcohol use details: Averages 3 glasses of wine per night. Substance Use: Substance use: never Substance use type: does not use Others: Spiritual care concerns: No Smoking Status: Smoking status: Never smoker Second hand tobacco smoke exposure: Yes Second hand tobacco smoke exposure comment: mother used to smoke Social Determinants of Health: Has the Lack of Transportation Kept You From Medical Appointments or From Getting Medications?: No Within the Past 12 Months, Were You Worried Whether Your Food Would Run Out Before You Got Money to Buy More?: Never True What is Your Housing Situation Today?: I Have Housing Are You Worried That in the Next 2 Months, You May Not Have Your Own Housing to Live In?: No Do You Have Trouble Paying Your Heating Or Electricity Bill?: No Do You Have Trouble Paying For Medicines?: No Are You Currently Unemployed and Looking for Work?: No Highest Level of Education Completed: Decline to Answer Do You Have Trouble With Childcare or the Care of a Family Member?: No Exam - Lab Results Laboratory Last Values WBC 5.8 K/mm3 (4.5-10.0) 01/29/22 02:25 RBC 3.85 M/mm3 (4.6-6.20) L 01/29/22 02:25 Hgb 14.3 g/dL (14.0-18.0) 01/29/22 02:25 Hct 40.3 % (42.0-52.0) L 01/29/22 02:25 MCV 104.7 fl (80-100) H 01/29/22 02:25 MCH 37.1 pg (26-34) H 01/29/22 02:25 MCHC 35.5 g/dl (32-36) 01/29/22 02:25 RDW 13.4 % (11.5-14.5) 01/29/22 02:25 Plt Count 54 k/mm3 (150-375) L D 01/29/22 02:25 MPV 11.9 fl (7.4-10.4) H 01/29/22 02:25 Immature Gran % (Auto) 0.3 % (0-0.5) 01/29/22 02:25 Neut % (Auto) 91.7 % (45.5-73.1) H 01/29/22 02:25 Lymph % (Auto) 6.6 % (18.3-44.2) L 01/29/22 02:25 [place] % (Auto) 1.4 % (2.6-8.5) L 01/29/22 02:25 Eos % (Auto) 0.0 % (0-4.4) 01/29/22 02:25 Baso % (Auto) 0.0 % (0.2-1.2) L 01/29/22 02:25 Lymph # (Auto) 0.38 K/mm3 (0.9-3.2) L 01/29/22 02:25 [place] # (Auto) 0.1 K/mm3 (0.1-0.6) 01/29/22 02:25 Eos # (Auto) 0.0 K/mm3 (0-0.3) 01/29/22 02:25 Baso # (Auto) 0.0 K/mm3 (0.0-0.1) 01/29/22 02:25 Abs Immat Gran (auto) 0.02 K/mm3 (0.00-0.031) 01/29/22 02:25 Absolute Neuts (auto) 5.3 K/mm3 (1.3-6.7) 01/29/22 02:25 Absolute Nucleated RBC 0.0 K/mm3 (0.0-0.012) 01/29/22 02:25 Nucleated RBC % 0.0 % (0.0-0.2) 01/29/22 02:25 Platelet Estimate Decreased (Adequate) 01/28/22 07:24 % Immature Plt Fraction 17.2 % (0.9-11.2) H 01/29/22 02:25 Anisocytosis
== END 2022-01-29 12:03 | disposition home or self-care (01) | DRG 813 ==
LOC: ANHCPC 13:29 → ANH2MED 17:42
PROVIDERS: Physician Assistant; Admitting Provider Internal Medicine; PCP Family Medicine; Visit Provider Internal Medicine
DX: D69.3 Immune thrombocytopenic purpura (principal); I47.20 Ventricular tachycardia, unspecified; I48.0 Paroxysmal atrial fibrillation; I10 Essential (primary) hypertension; Z90.49 Acquired absence of other specified parts of digestive tract; Z23 Encounter for immunization
CPT/HCPCS: 36415; 36430; 78452; 80048; 80053; 83735; 84443; 85025; 85049; 85055; 85610; 85730; 86850; 86900; 86901; 90471; 90686; 93017; A9502; C8929; G0008; J2785; J2930; P9034; Q9957

== ENCOUNTER 2022-01-31 23:00 | Inpatient (IN) | payer OTHER, SELFPAY ==
[2022-01-31] VITALS (10 sets, daily range): BP systolic 70–105; BP diastolic 59–85; PULSE 89–159; RESP 19–30; TEMP 36.2; O2SAT 93–99
--- NOTE | ~2022-01-31 | XR_ITS ---
XR chest 1V portable 02/01/2022 00:58 Indication: Chest palpitations Procedure: AP portable chest Comparison: 08/08/2020 Findings: Heart size normal. No focal air space disease, pulmonary edema, pleural effusion or suspect ed pneumothorax. Impression: 1: No acute cardiopulmonary disease. Reviewed, dictated and finalized at location A. [facility] MACHINE FEEDER OFFBEARER Impression: 1: No acute cardiopulmonary disease.
--- NOTE | 2022-01-31 23:03 | ECG_ITS ---
Measurements Intervals [place] Rate: 139 P: OR: 0 QRS: -37 QRSD: 83 T: 36 QT: 270 QTc: 411 Interpretive Statements ATRIAL FIBRILLATION WITH RAPID VENTRICULAR RESPONSE LEFT AXIS DEVIATION [QRS AXIS < -30] INCOMPLETE RIGHT BUNDLE BRANCH BLOCK COMPARED TO ECG 08/08/2020 22:29:51 ATRIAL FIBRILLATION NOW PRESENT Electronically Signed On 02-01-2022 11:19:55 ENVIRONMENTAL HEALTH AND SAFETY MANAGER by Chacorta Rodriguez M.D.
[2022-01-31] MEDS: METOPROLOL TARTRATE INJ 5 MG/5 ML VIAL IV PUSH (23:24)
[2022-01-31] MEDS: SODIUM CHLORIDE 0.9% IV 1,000 ML 150 ML IV CONT (23:24)
--- NOTE | 2022-01-31 23:35 | ED.GENADULT ---
HPI - General Adult General Chief complaint: Chest Pain Stated complaint: Life vest fired twice Time Seen by Provider: 01/31/22 23:09 History of Present Illness HPI narrative: Patient is a 66-year-old gentleman who presents emergency department with a chief complain of fast heart rate. Patient reports that he has history of A. fib and is currently wearing a LifeVest. The patient reports that his LifeVest alarmed several times with planning for discharge. The patient reports that he stopped the discharge as he noticed that his heart rate was just beating fast and did not feel as though he was going to pass out or was not having chest pain. Patient states he feels as though his heart rate is going fast at this point Related Data Home Medications Medication Instructions Recorded Confirmed metoprolol tartrate 25 mg tablet 25 mg PO PRN PRN Increased Heart 01/27/22 01/28/22 Rate Allergy (diphenhydramine) 25 mg PO PRN Allergies 01/28/22 01/28/22 Allergies Allergy/AdvReac Type Severity Reaction Status Date / Time No Known Allergies Allergy Verified 01/28/22 07:47 Review of Systems Review of Systems: A 10 system review of systems was completed on the patient and is negative except for what is stated in the HPI. Nursing and ancillary documentation was reviewed. [facility] Past Medical History Medical History Chronic idiopathic thrombocytopenia Erectile dysfunction Hypertension Paroxysmal atrial fibrillation Reported single episode, not on anticoagulation due to chronic thrombocytopenia. 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 Family History Family History Mother Family history of cardiovascular disease Chronic obstructive pulmonary disease Father Malignant neoplasm of prostate Coronary artery disease Cerebrovascular accident Diabetes mellitus Heart disease Social History Social History Social History: Surrogate medical decision maker: Code status: Smoking status: Never smoker Second hand tobacco smoke exposure: Yes (mother used to smoke) Alcohol intake: current Drinks per week: 21 Alcohol use details: Averages 3 glasses of wine per night. Substance use: never Substance use type: does not use Lack of Transportation: No Lack of Food: Never True Current Housing: I Have Housing Concerned About Future Housing: No Difficulty Paying Gas/Electric Bills: No Difficulty Paying for Meds: No Currently Unemployed: No Education: Associate Degree Difficulty w/ Childcare or Family Care: No Additional occupation/education comments: Works for [employer]. Spiritual care concerns: No Exam Narrative: GENERAL: Well-appearing, well-nourished, and in no acute distress. HEAD: Normocephalic, atraumatic. EYES: PERRLA and EOMI. ENT: Nares clear, no rhinorrhea or epistaxis. Mucous membranes moist. NECK: Supple. CHEST: Clear to auscultation. No respiratory distress. HEART: Tachycardic irregularly irregular. No murmur heard. Normal peripheral pulses. ABDOMEN: Soft, nontender, nondistended, normal active bowel sounds. EXTREMITIES: Normal range of motion. No edema. SKIN: Warm, dry, no rash. NEURO: No focal deficits. Alert and oriented x3. PSYCH: Normal mood and affect. Course Course Emergency Course: EKG is atrial fibrillation with rapid ventricular response at a rate of [address] elevation or ST depression Vital Signs Vital signs: Vital Signs Respiratory Rate 30 H 01/31/22 23:07 Temperature 36.2 C L 01/31/22 23:08 Pulse Rate 100 02/01/22 00:15 Respiratory Rate 22 H 02/01/22 00:15 Blood Pres
[2022-01-31 23:39] LABS: Basophils Percent Auto 0.1 % (0.2-1.2); Hematocrit 41.5 % (42.0-52.0); Hemoglobin 14.3 g/dL (14.0-18.0); Immature Granulocyte Absolute 0.03 K/mm3 (0.00-0.031); Immature Granulocyte Percent A 0.3 % (0-0.5); Immature Platelet Fraction Pct 16.5 % (0.9-11.2); Lymphocytes Absolute Auto 0.46 K/mm3 (0.9-3.2); Lymphocytes Percent Auto 5.3 % (18.3-44.2); Mean Corpuscular HGB Conc 34.5 g/dl (32-36); Mean Corpuscular Hemoglobin 36.1 pg (26-34); Mean Corpuscular Volume 104.8 fl (80-100); Monocytes Absolute Auto 0.6 K/mm3 (0.1-0.6); Monocytes Percent Auto 6.8 % (2.6-8.5); Neutrophils Absolute Auto 7.6 K/mm3 (1.3-6.7); Neutrophils Percent Auto 87.5 % (45.5-73.1); Platelet Count Result 145 k/mm3 (150-375); Red Blood Count 3.96 M/mm3 (4.6-6.20); Red Cell Distribution Width 13.7 % (11.5-14.5); White Blood Count 8.7 K/mm3 (4.5-10.0)
[2022-01-31 23:49] LABS: Alanine Aminotransferase 60 U/L (6-50); Albumin Level 3.6 g/dL (3.5-5.1); Alkaline Phosphatase 63 U/L (38-126); Anion Gap 8 mmol/L (8-16); Aspartate Amino Transferase 90 U/L (17-59); Bilirubin,Total 0.5 mg/dL (0.2-1.3); Blood Urea Nitrogen 13 mg/dL (9-20); Calcium 8.1 mg/dL (8.4-10.2); Carbon Dioxide 20 mmol/L (22-30); Chloride 105 mmol/L (98-107); Estimated CRCL calculation 86 ml/min; Estimated Glomerular Filt Rate > 60; Glucose 145 mg/dL (65-110); Magnesium 1.9 mg/dL (1.6-2.3); Potassium 3.9 mmol/L (3.4-5.0); Sodium 133 mmol/L (137-145)
[2022-01-31] MEDS: dilTIAZem HCl INJ 25 MG/5 ML VIAL 20 MG IV PUSH (23:51)
[2022-01-31 23:52] LABS: INR 1.2; Prothrombin Time 14.9 Seconds (11.1-14.7)
[2022-01-31] MEDS: dilTIAZem 100 MG/100 ML 100 MG/100 ML BAG IV CONT (23:52)
[2022-01-31 23:53] LABS: Partial Thromboplastin Time 25.4 SECONDS (22.3-36.8)
[2022-02-01] VITALS (29 sets, daily range): BP systolic 82–141; BP diastolic 50–107; PULSE 42–145; RESP 12–26; TEMP 36.3–36.7; O2SAT 95–100; BMI 25.1
[2022-02-01] LABS: NT Pro B Type Natriuretic Pept 922 pg/mL (5-100); Troponin I < 0.012 ng/mL (0.000-0.034)
--- NOTE | 2022-02-01 00:30 | PM.IMHP ---
H&P: HPI History of Present Illness Date/Time: 02/01/22 00:30 Chief Complaint: palpitations Narrative: This is a 66-year-old male with past medical history significant for arrhythmia, patient has life vest according to patient had an episode of palpitations felt like heart skipped a beat device went off and patient de activated it episode of care 2nd time and then a 3rd time when patient was leaving the house to come to the hospital. Patient has been in his usual state of health recently discharged from [facility] with life vest on. preliminary workup was significant for atrial fibrillation with rapid ventricular response, denies any chest pain, patient had 2 episodes of syncope on separate occasions in the last 2 weeks or so, no cough, no sputum diarrhea no fevers no rigors no chills, no worsening bilateral lower extremity, no PND, no orthopnea. patient is been admitted for further evaluation management and treatment. Review of Systems Review of Systems: Palpitations, life vest alarm goes of ready to shock. Constitutional: Constitutional: Denies chills, Denies fever(s), Denies malaise, Denies night sweats, Denies poor appetite and Denies weakness Eyes: Eyes: Denies change in vision ENT: Denies dysphagia, Denies vertigo, Denies dizziness and Denies odynophagia Respiratory: Respiratory: Denies chest congestion, Denies cough, Denies pain on inspiration, Denies dyspnea, Denies dyspnea on exertion and Denies wheezing Gastrointestinal: Gastrointestinal: Denies abdominal pain, Denies dyspepsia, Denies heartburn, Denies diarrhea, Denies nausea and Denies vomiting Genitourinary: Genitourinary: Denies dysuria Musculoskeletal: Musculoskeletal: Denies back pain, Denies myalgias, Denies joint swelling and Denies muscle weakness Integumentary/Breasts: Skin/Breast: Denies rash Psychiatric: Psychiatric: Reports no additional psychiatric complaints and Reports as per HPI Endocrine: Endocrine: Denies cold intolerance, Denies fatigue, Denies flushing, Denies heat intolerance, Denies polyphagia, Denies polydipsia and Denies palpitations Hematologic/Lymphatic: Hematologic/Lymphatic: Reports no additional hematologic/lymphatic complaints and Reports as per HPI Allergic/Immunologic: Allergic/Immunologic: Reports no additional allergic/immunologic complaints and Reports as per HPI [facility] Past Medical History Medical History Chronic idiopathic thrombocytopenia Erectile dysfunction Hypertension Paroxysmal atrial fibrillation Reported single episode, not on anticoagulation due to chronic thrombocytopenia. 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 Family History Family History Mother Family history of cardiovascular disease Chronic obstructive pulmonary disease Father Malignant neoplasm of prostate Coronary artery disease Cerebrovascular accident Diabetes mellitus Heart disease Social History Social History Social History: Surrogate medical decision maker: Code status: Smoking status: Never smoker Second hand tobacco smoke exposure: Yes (mother used to smoke) Alcohol intake: current Drinks per week: 21 Alcohol use details: Averages 3 glasses of wine per night. Substance use: never Substance use type: does not use Lack of Transportation: No Lack of Food: Never True Current Housing: I Have Housing Concerned About Future Housing: No Difficulty Paying Gas/Electric Bills: No Difficulty Paying for Meds: No Currently Unemployed: No Education: Decline to Answer Difficulty w/ Childcare or Family Care: No Additional oc
[2022-02-01 01:01] LABS: Influenza A QL RT-PCR Negative (Negative); Influenza B QL RT-PCR Negative (Negative); SARS-CoV-2 RNA PCR Negative
--- NOTE | 2022-02-01 01:28 | ADMGEN ---
This patient, Reji Sanon, was admitted to IMU Room 205-02 at 0128. Patient/family oriented to hospital policies and general routines including ID bracelet, bed and alarms, visiting hours, pain management, procedures, bathroom and other care routines, personal items, smoking policy, room service/diet, and visiting hours. Information on how to activate the Rapid Response Team has been discussed. Patient/Family are encouraged to report perceived risks to care and to ask questions if they do not understand what they are told or what they should do.
--- NOTE | 2022-02-01 02:10 | PC.NURSE ---
patient is currently wearing a life vest.
[2022-02-01 03:11] LABS: Troponin I < 0.012 ng/mL (0.000-0.034)
[2022-02-01 05:57] LABS: Troponin I < 0.012 ng/mL (0.000-0.034)
[2022-02-01] MEDS: predniSONE 20 MG TABLET 60 MG PO (10:00)
--- NOTE | 2022-02-01 10:13 | PM.CNCAR ---
Assessment and Plan Assessment and plan (1) Atrial fibrillation with rapid ventricular response: Code(s): I48.91 - Unspecified atrial fibrillation Status: Acute (2) Acute ITP: Code(s): D69.3 - Immune thrombocytopenic purpura Status: Acute Plan Will stop Dilt drip and start on oral Metoprolol for rate control. Not a candidate for anticoagulation due to chronic thrombocytopenia. Will have our office reschedule his EP Clinic appointment. I let Dr. Baxter know of patient's admission. As for his acute ITP, his platelet count has improved with the prednisone taper that we had discharged patient on last week. Prednisone taper as per Dr. Wallace: Prednisone 60mg daily and taper 10mg every 4 days. Today is the last day for 60mg. Will give 60mg today, and start 50mg for 4 days starting tomorrow morning. Anticipate discharge tomorrow if he is rate controlled. History of Present Illness History of Present Illness Consult date/time: 02/01/22 10:13 Requesting physician: Vin Marques MD Consult reason: atrial fibrillation Reason For Visit: atrial bibrillation with rapid ventricular respons Narrative: We are being consulted for atrial fibrillation with RVR. We had just discharged Mr. Sanon on Monday 01/29 after he was admitted with acute ITP. Echo and Lexiscan done last week were normal. Patient has been taking his prednisone taper as prescribed. Patient went into atrial fibrillation with RVR last night. Patient states he felt fluttering sensation in his chest and when he felt his pulse, he said it was irregular. He took a dose of Metoprolol, however, he says pulse remained high. Patient states that his Life Vest was about to discharge x 2, however, he stopped it both times. EKG on admission shows atrial fibrillation with RVR. Started on Dilt drip. Patient is feeling well this AM. Remains in atrial fibrillation, however HR in the 90s on Dilt drip of 5. Review of Systems Review of Systems: 12-point ROS obtained. Negative, unless stated in HPI. [facility] Past Medical History Medical History Chronic idiopathic thrombocytopenia Erectile dysfunction Hypertension Paroxysmal atrial fibrillation Reported single episode, not on anticoagulation due to chronic thrombocytopenia. 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 Family History Family History Mother Family history of cardiovascular disease Chronic obstructive pulmonary disease Father Malignant neoplasm of prostate Coronary artery disease Cerebrovascular accident Diabetes mellitus Heart disease Social History Social History Social History: Surrogate medical decision maker: Code status: Smoking status: Never smoker Second hand tobacco smoke exposure: Yes (mother used to smoke) Alcohol intake: current Drinks per week: 21 Alcohol use details: Averages 3 glasses of wine per night. Substance use: never Substance use type: does not use Lack of Transportation: No Lack of Food: Never True Current Housing: I Have Housing Concerned About Future Housing: No Difficulty Paying Gas/Electric Bills: No Difficulty Paying for Meds: No Currently Unemployed: No Education: Decline to Answer Difficulty w/ Childcare or Family Care: No Additional occupation/education comments: Works for [employer]. Spiritual care concerns: No Meds Home Medications and Allergies Home Medications Medication Instructions Recorded Confirmed Type metoprolol tartrate 25 mg tablet 25 mg PO PRN PRN Palpitations 01/27/22 02/01/22 History Allergy (diphenhydramine) 25 mg PO DAILY PRN Allergy Symptoms 01/28/22
[2022-02-01] MEDS: METOPROLOL TARTRATE 50 MG TAB PO (10:15)
--- NOTE | 2022-02-01 11:58 | PM.IMPN ---
Progress Note: A&P Assessment and Plan (1) Sustained ventricular tachycardia: Code(s): I47.20 - Ventricular tachycardia, unspecified Status: Acute Assessment and Plan: patient is status post LifeVest placement was supposed to have appointment with supportive employment case manager admit to IMU consult cardiology (2) Paroxysmal atrial fibrillation: Code(s): I48.0 - Paroxysmal atrial fibrillation Status: Acute Assessment and Plan: patient on no anticoagulation due to thrombocytopenia rate controlled (3) Chronic idiopathic thrombocytopenia: Code(s): D69.3 - Immune thrombocytopenic purpura Status: Acute Assessment and Plan: follows up in the outpatient setting with Hematology-Oncology continue to monitor holding all heparin products (4) Syncope and collapse: Code(s): R55 - Syncope and collapse Status: Acute Assessment and Plan: likely secondary to arrhythmia continue to monitor supportive care Subjective Date/time seen: 02/01/22 11:58 no new complaints feeling better rates controlled Exam Const: General: comfortable, no acute distress, well developed, alert, awake and average body habitus Nutritional Appearance: average body habitus Orientation/consciousness: patient oriented x3 HENMT: Head: normal to inspection, normocephalic and atraumatic Ears: hearing grossly normal bilaterally Face/Nose/Sinus: normal facial exam Face and sinus: normal facial exam Eyes: General: appearance normal, both eyes and all related structures Pupils: Equal, round and reactive pupils present EOM: EOMs intact bilaterally Neck: Neck: full ROM, no lymphadenopathy and no JVD Thyroid: thyroid normal Lymphatic: no lymphadenopathy noted Chest: Other: Life vest on Resp: Effort & Inspection: normal respiratory effort and able to speak in complete sentences Auscultation: clear to auscultation bilaterally Cardio: Jugular venous distension: no JVD Rate: regular rate Rhythm: regular rhythm Heart sounds: S1 normal heart sound present and S2 normal heart sound present : General: Yes deferred Skin: Rashes: no rashes Wounds: no wounds Neuro: General: patient oriented x3 and CN's II-XI intact bilaterally Cranial nerves: Yes CN's II-XII intact bilaterally and Yes Equal, round and reactive pupils present Cognition (Neuro): normal cognition Speech: normal speech Gait exam (Neuro): Normal gait present Motor exam (neuro): 5/5 motor strength present throughout Extrem: General: normal to inspection, full ROM, no joint enlargement and no pedal edema Objective Data Vital Signs Vital Signs: Vital Signs - 24 hr 01/31/22 23:08 01/31/22 23:08 01/31/22 23:52 Temperature 97.2 F L Pulse Rate 159 H 149 H 141 H Respiratory Rate 20 Blood Pressure 93/69 L 105/61 Pulse Oximetry 94 Oxygen Delivery Room Air 01/31/22 23:07 01/31/22 23:09 01/31/22 23:11 Temperature Pulse Rate 131 H 132 H Respiratory Rate 30 H 20 26 H Blood Pressure 89/67 L 93/69 L Pulse Oximetry 93 Oxygen Delivery 01/31/22 23:15 01/31/22 23:16 01/31/22 23:30 Temperature Pulse Rate 132 H 137 H 142 H Respiratory Rate 27 H 21 H 23 H Blood Pressure 102/85 Pulse Oximetry 98 99 96 Oxygen Delivery 02/01/22 00:01 01/31/22 23:52 01/31/22 23:58 Temperature Pulse Rate 86 148 H 89 Respiratory Rate 19 22 H Blood Pressure 83/59 L 86/63 L Pulse Oximetry 99 99 Oxygen Delivery 01/31/22 23:59 02/01/22 00:00 02/01/22 00:01 Temperature Pulse Rate 95 96 86 Respiratory Rate 22 H 22 H 22 H Blood Pressure 70/59 L 83/55 L Pulse Oximetry 97 95 98 Oxygen Delivery 02/01/22 00:04 02/01/22 00:07 02/01/22 00:08 Temperature Pulse Rate 87 98 78 Respiratory Rate 24 H 21 H 20 Blood Pressure 82/50 L 85/63 L Pulse Oximetry 97 97 98 Oxygen Delivery 02/01/22 00:15 02/01/22 00:44 02/01/22 00:46 Temperature Pulse Rate 100 93 98 Respiratory Ra
[2022-02-01] MEDS: METOPROLOL TARTRATE INJ 5 MG/5 ML VIAL IV PUSH (18:40)
[2022-02-01] MEDS: METOPROLOL TARTRATE 50 MG TAB 100 MG PO (21:32)
[2022-02-02] VITALS (19 sets, daily range): BP systolic 86–122; BP diastolic 45–90; PULSE 93–153; RESP 18–20; TEMP 36.2–36.6; O2SAT 93–99
[2022-02-02] MEDS: METOPROLOL TARTRATE 50 MG TAB 100 MG PO ×2 (09:11→20:53)
[2022-02-02] MEDS: predniSONE 40 MG, predniSONE 10 MG 50 MG PO (09:12)
--- NOTE | 2022-02-02 11:51 | PM.PNCARD ---
Progress Note: A&P Assessment and Plan (1) Atrial fibrillation with rapid ventricular response: Code(s): I48.91 - Unspecified atrial fibrillation Status: Acute Plan As patient remains in RVR, Metoprolol increased to 100mg BID. Not a candidate for anticoagulation due to ITP. Therefore, would not be able to do elective electrical cardioversion. If he remains in RVR despite Metoprolol 100mg BID, will add oral Dilt. If blood pressures unable to tolerate Dilt, then will do Amiodarone. As for his acute ITP, his platelet count has improved with the prednisone taper that we had discharged patient on last week. Prednisone taper as per Dr. Wallace: Prednisone 60mg daily and taper 10mg every 4 days. Patient completed Prednisone 60mg for 4 days. Today is Day #1 of Prednisone 50mg. Subjective Date/time seen: 02/02/22 11:51 Interval history: Reason for visit: Atrial fibrillation with RVR HPI: We are being consulted for atrial fibrillation with RVR. We had just discharged Mr. Sanon on Monday 01/29 after he was admitted with acute ITP. Echo and Lexiscan done last week were normal. Patient has been taking his prednisone taper as prescribed. Patient went into atrial fibrillation with RVR last night. Patient states he felt fluttering sensation in his chest and when he felt his pulse, he said it was irregular. He took a dose of Metoprolol, however, he says pulse remained high. Patient states that his Life Vest was about to discharge x 2, however, he stopped it both times.EKG on admission shows atrial fibrillation with RVR. Started on Dilt drip. Patient is feeling well this AM. Remains in atrial fibrillation, however HR in the 90s on Dilt drip of 5. Date of service 02/02/2022: Remains in atrial fibrillation with RVR. Patient is otherwise feeling well. Review of Systems Review of Systems: 8-point ROS obtained. Negative, unless stated in HPI. Exam Const: General: comfortable and no acute distress HENMT: Mouth: Yes moist mucous membranes Eyes: General: appearance normal, both eyes and all related structures Sclera: sclerae normal Neck: Neck: supple and no JVD Resp: Effort & Inspection: normal respiratory effort Auscultation: clear to auscultation bilaterally Cardio: Rhythm: abnormal rhythm irregularly irregular Skin: General skin exam: normal color Neuro: Speech: normal speech Extrem: General: normal to inspection Psych: Mental Status: mental status grossly normal Affect: normal affect Objective Data Vital Signs Vital Signs: Vital Signs - 24 hr 02/01/22 12:00 02/01/22 15:01 02/01/22 12:00 Temperature 36.3 C L Pulse Rate 51 L 103 H Respiratory Rate 12 Blood Pressure 97/67 L Pulse Oximetry 98 99 Oxygen Delivery Room Air 02/01/22 14:00 02/01/22 16:00 02/01/22 16:00 Temperature 36.5 C Pulse Rate 107 H 101 H 112 H Respiratory Rate 12 Blood Pressure 101/62 Pulse Oximetry 97 Oxygen Delivery 02/01/22 18:40 02/01/22 12:00 02/01/22 16:00 Temperature Pulse Rate 145 H Respiratory Rate Blood Pressure Pulse Oximetry 97 98 Oxygen Delivery Room Air Room Air 02/01/22 18:00 02/01/22 20:00 02/01/22 21:30 Temperature 36.5 C Pulse Rate 121 H 114 H 109 H Respiratory Rate 18 Blood Pressure 87/60 L 106/56 L Pulse Oximetry 99 Oxygen Delivery 02/01/22 21:32 02/01/22 23:21 02/01/22 20:00 Temperature 36.6 C Pulse Rate 106 H 87 99 Respiratory Rate 18 Blood Pressure 96/60 L Pulse Oximetry 96 Oxygen Delivery 02/01/22 22:00 02/01/22 20:00 02/02/22 00:00 Temperature Pulse Rate 108 H Respiratory Rate Blood Pressure Pulse Oximetry Oxygen Delivery Room Air Room Air 02/02/22 00:00 02/02/22 02:00 02/02/22 04:00 Temperature 36.6 C Pulse Rate 94 113 H 128 H Respiratory Rate 20 Blood Pressure 98/45 L Pulse Oximetry 99 Oxygen Delivery 02/02/22 04:00 02/02/22 04:00 02/02/22 06:00 Temperature Pulse Rate 93 96
[2022-02-02] MEDS: AMIODARONE 360 MG/D5W 200 ML 360 MG/200 ML BAG 33.33 MG IV CONT (12:55)
[2022-02-02] MEDS: AMIODARONE 360 MG/D5W 200 ML 360 MG/200 ML BAG 33.3 MG (12:57)
--- NOTE | 2022-02-02 14:25 | PM.IMPN ---
Progress Note: A&P Assessment and Plan (1) Sustained ventricular tachycardia: Code(s): I47.20 - Ventricular tachycardia, unspecified Status: Acute Assessment and Plan: patient is status post LifeVest placement was supposed to have appointment with director data management admit to IMU consult cardiology (2) Paroxysmal atrial fibrillation: Code(s): I48.0 - Paroxysmal atrial fibrillation Status: Acute Assessment and Plan: patient on no anticoagulation due to thrombocytopenia Rate not controlled. Medications adjusted by Cardiology. Will see how he responds. (3) Chronic idiopathic thrombocytopenia: Code(s): D69.3 - Immune thrombocytopenic purpura Status: Acute Assessment and Plan: follows up in the outpatient setting with Hematology-Oncology continue to monitor holding all heparin products (4) Syncope and collapse: Code(s): R55 - Syncope and collapse Status: Acute Assessment and Plan: likely secondary to arrhythmia continue to monitor supportive care Subjective Date/time seen: 02/02/22 14:25 No complaints heart rate is still elevated a little bit. Exam Const: General: comfortable, no acute distress, well developed, alert, awake and average body habitus Nutritional Appearance: average body habitus Orientation/consciousness: patient oriented x3 HENMT: Head: normal to inspection, normocephalic and atraumatic Ears: hearing grossly normal bilaterally Face/Nose/Sinus: normal facial exam Face and sinus: normal facial exam Eyes: General: appearance normal, both eyes and all related structures Pupils: Equal, round and reactive pupils present EOM: EOMs intact bilaterally Neck: Neck: full ROM, no lymphadenopathy and no JVD Thyroid: thyroid normal Lymphatic: no lymphadenopathy noted Chest: Other: Life vest on Resp: Effort & Inspection: normal respiratory effort and able to speak in complete sentences Auscultation: clear to auscultation bilaterally Cardio: Jugular venous distension: no JVD Rate: regular rate Rhythm: regular rhythm Heart sounds: S1 normal heart sound present and S2 normal heart sound present : General: Yes deferred Skin: Rashes: no rashes Wounds: no wounds Neuro: General: patient oriented x3 and CN's II-XI intact bilaterally Cranial nerves: Yes CN's II-XII intact bilaterally and Yes Equal, round and reactive pupils present Cognition (Neuro): normal cognition Speech: normal speech Gait exam (Neuro): Normal gait present Motor exam (neuro): 5/5 motor strength present throughout Extrem: General: normal to inspection, full ROM, no joint enlargement and no pedal edema Objective Data Vital Signs Vital Signs: Vital Signs - 24 hr 02/01/22 15:01 02/01/22 16:00 02/01/22 16:00 Temperature 97.7 F Pulse Rate 101 H 112 H Respiratory Rate 12 Blood Pressure 101/62 Pulse Oximetry 99 97 Oxygen Delivery Room Air 02/01/22 18:40 02/01/22 16:00 02/01/22 18:00 Temperature Pulse Rate 145 H 121 H Respiratory Rate Blood Pressure Pulse Oximetry 98 Oxygen Delivery Room Air 02/01/22 20:00 02/01/22 21:30 02/01/22 21:32 Temperature 97.7 F Pulse Rate 114 H 109 H 106 H Respiratory Rate 18 Blood Pressure 87/60 L 106/56 L Pulse Oximetry 99 Oxygen Delivery 02/01/22 23:21 02/01/22 20:00 02/01/22 22:00 Temperature 97.8 F Pulse Rate 87 99 108 H Respiratory Rate 18 Blood Pressure 96/60 L Pulse Oximetry 96 Oxygen Delivery 02/01/22 20:00 02/02/22 00:00 02/02/22 00:00 Temperature Pulse Rate 94 Respiratory Rate Blood Pressure Pulse Oximetry Oxygen Delivery Room Air Room Air 02/02/22 02:00 02/02/22 04:00 02/02/22 04:00 Temperature 97.9 F Pulse Rate 113 H 128 H Respiratory Rate 20 Blood Pressure 98/45 L Pulse Oximetry 99 Oxygen Delivery Room Air 02/02/22 04:00 02/02/22 06:00 02/02/22 08:00 Temperature 98 F Pulse Rate
[2022-02-02] MEDS: AMIODARONE 360 MG/D5W 200 ML 360 MG/200 ML BAG 16.67 MG IV CONT (18:31)
[2022-02-03] VITALS (9 sets, daily range): BP systolic 96–98; BP diastolic 44–68; PULSE 78–116; RESP 18–20; TEMP 36.6–37; O2SAT 97–100
[2022-02-03] MEDS: AMIODARONE 360 MG/D5W 200 ML 360 MG/200 ML BAG 16.67 MG IV CONT (03:01)
--- NOTE | 2022-02-03 08:00 | PC.NURSE ---
Patient alert and oriented,verbally responsive. Able to move all four extremities w/o difficulty. Denies SOB, CP, Respiratory distress. On cardiac monitoring, stable at this time. Medication infusing as ordered, tolerating it well. Will continue to monitor.
[2022-02-03] MEDS: predniSONE 40 MG, predniSONE 10 MG 50 MG PO (08:17)
[2022-02-03] MEDS: AMIODARONE HCL 200 MG TABLET 400 MG PO (10:32)
--- NOTE | 2022-02-03 10:35 | PM.PNCARD ---
Progress Note: A&P Assessment and Plan (1) Atrial fibrillation with rapid ventricular response: Code(s): I48.91 - Unspecified atrial fibrillation Status: Acute Plan For rate control, Metoprolol increased to 100mg BID. Not a candidate for anticoagulation due to ITP. Therefore, would not be able to do elective electrical cardioversion. As patient remained in atrial fibrillation with RVR on Metoprolol, started on Amiodarone as his blood pressures would not have tolerated addition of Diltiazem. Stop IV Amiodarone and start oral Amiodarone. Will have patient take 400mg BID for 1 week, followed by 400mg daily for 1 week, followed by 200mg daily for maintenance therapy. Has upcoming EP appointment on Tuesday. As for his acute ITP, his platelet count has improved with the prednisone taper that we had discharged patient on last week. Prednisone taper as per Dr. Wallace: Prednisone 60mg daily and taper 10mg every 4 days. Patient completed Prednisone 60mg for 4 days. Today is Day #2 of Prednisone 50mg. Subjective Date/time seen: 02/03/22 10:35 Interval history: Reason for visit: Atrial fibrillation with RVR HPI: We are being consulted for atrial fibrillation with RVR. We had just discharged Mr. Sanon on Monday 01/29 after he was admitted with acute ITP. Echo and Lexiscan done last week were normal. Patient has been taking his prednisone taper as prescribed. Patient went into atrial fibrillation with RVR last night. Patient states he felt fluttering sensation in his chest and when he felt his pulse, he said it was irregular. He took a dose of Metoprolol, however, he says pulse remained high. Patient states that his Life Vest was about to discharge x 2, however, he stopped it both times.EKG on admission shows atrial fibrillation with RVR. Started on Dilt drip. Patient is feeling well this AM. Remains in atrial fibrillation, however HR in the 90s on Dilt drip of 5. Date of service 02/02/2022: Remains in atrial fibrillation with RVR. Patient is otherwise feeling well. Date of service 02/03/2022: Overall rate controlled on IV Amiodarone. Patient is feeling great. Review of Systems Review of Systems: 8-point ROS obtained. Negative, unless stated in HPI. Exam Const: General: comfortable and no acute distress HENMT: Mouth: Yes moist mucous membranes Eyes: General: appearance normal, both eyes and all related structures Sclera: sclerae normal Neck: Neck: supple and no JVD Resp: Effort & Inspection: normal respiratory effort Auscultation: clear to auscultation bilaterally Cardio: Rhythm: abnormal rhythm irregularly irregular Skin: General skin exam: normal color Neuro: Speech: normal speech Psych: Mental Status: mental status grossly normal Affect: normal affect Objective Data Vital Signs Vital Signs: Vital Signs - 24 hr 02/02/22 12:55 02/02/22 12:57 02/02/22 12:00 Temperature Pulse Rate 125 H 125 H 109 H Respiratory Rate Blood Pressure 86/54 L 86/54 L Pulse Oximetry Oxygen Delivery 02/02/22 12:00 02/02/22 12:00 02/02/22 14:00 Temperature 36.6 C Pulse Rate 111 H 120 H Respiratory Rate 18 Blood Pressure 86/54 L Pulse Oximetry 99 Oxygen Delivery Room Air 02/02/22 16:00 02/02/22 16:00 02/02/22 16:00 Temperature 36.2 C L Pulse Rate 125 H 110 H Respiratory Rate 18 Blood Pressure 89/64 L Pulse Oximetry 97 Oxygen Delivery Room Air 02/02/22 18:00 02/02/22 18:31 02/02/22 19:50 Temperature 36.5 C Pulse Rate 115 H 102 H 109 H Respiratory Rate 20 Blood Pressure 86/54 L 122/90 Pulse Oximetry 93 Oxygen Delivery 02/02/22 20:53 02/02/22 20:00 02/02/22 20:00 Temperature Pulse Rate 98 109 H 109 H Respiratory Rate 20 Blood Pressure Pulse Oximetry 93 Oxygen Delivery Room Air 02/02/22 22:00 02/02/22 23:43 02/03/22 00:00 Temperature 36.5 C Pulse Rate 104 H 105 H 100 Respiratory Rate 20 Blood Pressure 93/65 L Pulse Oximetry 97
--- NOTE | 2022-02-03 12:07 | PM.DS ---
DS: Admitting Diagnosis Discharge Date 02/03/22 Admitting Diagnosis Tachycardia DS: Discharge Diagnosis Discharge Diagnosis (1) Sustained ventricular tachycardia: Code(s): I47.20 - Ventricular tachycardia, unspecified Status: Acute (2) Paroxysmal atrial fibrillation: Code(s): I48.0 - Paroxysmal atrial fibrillation Status: Acute (3) Chronic idiopathic thrombocytopenia: Code(s): D69.3 - Immune thrombocytopenic purpura Status: Acute (4) Syncope and collapse: Code(s): R55 - Syncope and collapse Status: Acute DS: Summary Hospital Course Reason for hospitalization: 66yo male with pAFib here for tachycardia. Please see H&P for details. Hospital Course: patient was recently discharged few days prior to this admission. During that last hospitalization, he had echocardiogram and Lexiscan stress test performed both of which were within normal limits. He was started on prednisone taper for acute ITP. Patient does have a LifeVest on. His heart rate was accelerated any regular. The LifeVest was about to discharge x2 when he stopped this both times. Patient was instructed to come to the emergency room. He mentions having 2 syncopal episodes on 2 separate occasions about 2 weeks apart. Patient's heart rate was 159 on admission. EKG showed atrial fibrillation with RVR. He does take equate sinus medications in the was advised to stop this medication. He was started on IV Diltiazem. His platelet count was 54K with a macrocytosis but normal white count and hemoglobin. He was continued on prednisone. His platelet count has improved to 145K. Patient was not started on anticoagulation because of his low platelet count. He was switched to IV amiodarone. Scheduled oral metoprolol added. Heart rate became better controlled. He was switched to oral Amiodarone. TSH was normal. LFTs mildly elevated related to hepatic congestion. Trop negative x 3. He overall did well and was able to be discharged home on 02/03/22. Status at Discharge Cognitive/behavioral status at discharge: stable Time Spent with Patient Time attestation: Total time spent providing and/or coordinating discharge services: 35 minutes Time spent: Greater than 30 minutes Exam Narrative: AF 97.8 98/60 93 18 97% ra Gen - NARD Chest - CTA bilaterally, nml RR. Life vest in place CV - irregularly irregular Abd - Soft, NT/ND, Positive BS Ext - No pedal edema Psych - Nml mood and affect Skin - Warm and dry Discharge Plan Discharge Attending physician on discharge: Ezekiel May Consulting providers: Ernesto Carbajal Discharging Clinician: Ezekiel May Anticipated Discharge Date/Time: 02/03/22 12:18 Patient Disposition: Home, Self-Care Activity: no driving Diet: heart healthy Discharge Instructions: Take precautions to avoid falls. Rise slowly from a lying or sitting position. Pause before standing or walking. Contact your doctor or call 911 and come to the Emergency Room if you have chest pain, lightheadedness with standing or other worrisome symptoms. PREDNISONE TAPER Prednisone 60mg daily and taper 10mg every 4 days. You have completed Prednisone 60mg for 4 days. Today (02/03) is Day #2 of Prednisone 50mg. AMIODARONE TAPER Take 400mg 2x/day for 1 week, followed by 400mg daily for 1 week, then to 200mg daily Follow-up with your primary care provider in 1-2 weeks. Please call for appointment. Follow-up with Dr Wallace in 2 weeks. Please call for an appointment. Follow-up with [facility] in 1-2 weeks. Please call for an appointment. You have an appointment set up for intelligence clerk on 02/08/22. Please make every attempt to keep this appointment. Thank you for using [facility] for your health care needs. Patient Instructions: Antibiotic Form, Diltiazem (By mouth) Stand Alone Forms: General Discharge Information Follow-up/Referrals: Ike Wallace MD
--- NOTE | 2022-02-03 13:58 | PC.NURSE ---
Patient discharged home. Discharge instructions given. Patient verbalized understanding. MD notified.
== END 2022-02-03 13:58 | disposition home or self-care (01) | DRG 309 ==
LOC: ANHED 02-01 00:32 → ANHIMU 02-01 01:06
PROVIDERS: Admitting Provider Internal Medicine; Emergency Provider Emergency Medicine; PCP Family Medicine; Visit Provider Internal Medicine
DX: I47.20 Ventricular tachycardia, unspecified (principal); D69.3 Immune thrombocytopenic purpura; I48.0 Paroxysmal atrial fibrillation; I10 Essential (primary) hypertension; Z90.49 Acquired absence of other specified parts of digestive tract; Z20.822 Contact with and (suspected) exposure to COVID-19
CPT/HCPCS: 36415; 71045; 80053; 83735; 83880; 84484; 85025; 85055; 85610; 85730; 87636; 93005; 96361; 96365; 96366; 96375; 96376; 99285; A9270; G0378; J0282; J7030; J7512

== ENCOUNTER 2022-04-22 14:33 | Outpatient (CLI) | payer OTHER, SELFPAY ==
[2022-04-22 14:51] LABS: Basophils Absolute Auto 0.1 K/mm3 (0.0-0.1); Basophils Percent Auto 0.5 % (0.2-1.2); Eosinophils Percent Auto 0.2 % (0-4.4); Hematocrit 40.8 % (42.0-52.0); Hemoglobin 13.8 g/dL (14.0-18.0); Immature Granulocyte Absolute 0.02 K/mm3 (0.00-0.031); Immature Granulocyte Percent A 0.2 % (0-0.5); Immature Platelet Fraction Pct 10.8 % (0.9-11.2); Lymphocytes Absolute Auto 1.62 K/mm3 (0.9-3.2); Lymphocytes Percent Auto 16.5 % (18.3-44.2); Mean Corpuscular HGB Conc 33.8 g/dl (32-36); Mean Corpuscular Hemoglobin 35.2 pg (26-34); Mean Corpuscular Volume 104.1 fl (80-100); Mean Platelet Volume 12.1 fl (7.4-10.4); Monocytes Absolute Auto 0.9 K/mm3 (0.1-0.6); Neutrophils Absolute Auto 7.2 K/mm3 (1.3-6.7); Neutrophils Percent Auto 73.6 % (45.5-73.1); Platelet Count Result 73 k/mm3 (150-375); Red Blood Count 3.92 M/mm3 (4.6-6.20); Red Cell Distribution Width 14.1 % (11.5-14.5); White Blood Count 9.8 K/mm3 (4.5-10.0)
[2022-04-22 14:54] LABS: Blood Urea Nitrogen 9 mg/dL (8-26); Carbon Dioxide 31 mmol/L (22-30); Chloride 107 mmol/L (98-109); Estimated Glomerular Filt Rate > 60; Glucose 97 mg/dL (70-105); Ionized Calcium (POC) 1.17 mmol/L (1.11-1.31); Potassium 4.6 mmol/L (3.5-4.9); Sodium 143 mmol/L (138-146)
== END 2022-04-22 14:34 | disposition home or self-care (01) ==
LOC: ANHLAB 14:34
PROVIDERS: PCP Family Medicine; Visit Provider Internal Medicine Hematology & Oncology
DX: D69.59 Other secondary thrombocytopenia (principal)
CPT/HCPCS: 36415; 80047; 85025; 85055

== ENCOUNTER 2022-07-21 14:28 | Outpatient (CLI) | payer OTHER, SELFPAY ==
[2022-07-21 14:46] LABS: Basophils Absolute Auto 0.1 K/mm3 (0.0-0.1); Basophils Percent Auto 0.7 % (0.2-1.2); Eosinophils Percent Auto 0.3 % (0-4.4); Hematocrit 42.5 % (42.0-52.0); Immature Granulocyte Absolute 0.02 K/mm3 (0.00-0.031); Immature Granulocyte Percent A 0.3 % (0-0.5); Immature Platelet Fraction Pct 10.1 % (0.9-11.2); Lymphocytes Percent Auto 24.3 % (18.3-44.2); Mean Corpuscular HGB Conc 35.3 g/dl (32-36); Mean Corpuscular Hemoglobin 36.6 pg (26-34); Mean Corpuscular Volume 103.7 fl (80-100); Mean Platelet Volume 11.6 fl (7.4-10.4); Monocytes Absolute Auto 0.8 K/mm3 (0.1-0.6); Monocytes Percent Auto 11.6 % (2.6-8.5); Neutrophils Absolute Auto 4.4 K/mm3 (1.3-6.7); Neutrophils Percent Auto 62.8 % (45.5-73.1); Platelet Count Result 94 k/mm3 (150-375); Red Cell Distribution Width 12.3 % (11.5-14.5)
== END 2022-07-21 14:29 | disposition home or self-care (01) ==
LOC: ANHLAB 14:29
PROVIDERS: PCP Family Medicine; Visit Provider Internal Medicine Hematology & Oncology
DX: D69.59 Other secondary thrombocytopenia (principal)
CPT/HCPCS: 36415; 85025; 85055

== ENCOUNTER 2022-10-21 14:35 | Outpatient (CLI) | payer MEDICARE, SELFPAY ==
[2022-10-21 15:01] LABS: Basophils Absolute Auto 0.1 K/mm3 (0.0-0.1); Eosinophils Absolute Auto 0.2 K/mm3 (0-0.3); Eosinophils Percent Auto 2.2 % (0-4.4); Hematocrit 42.4 % (42.0-52.0); Hemoglobin 15.2 g/dL (14.0-18.0); Immature Granulocyte Absolute 0.02 K/mm3 (0.00-0.031); Immature Granulocyte Percent A 0.2 % (0-0.5); Immature Platelet Fraction Pct 18.4 % (0.9-11.2); Lymphocytes Absolute Auto 1.78 K/mm3 (0.9-3.2); Mean Corpuscular HGB Conc 35.8 g/dl (32-36); Mean Corpuscular Hemoglobin 36.7 pg (26-34); Mean Corpuscular Volume 102.4 fl (80-100); Mean Platelet Volume 13.2 fl (7.4-10.4); Monocytes Absolute Auto 0.9 K/mm3 (0.1-0.6); Monocytes Percent Auto 11.1 % (2.6-8.5); Neutrophils Absolute Auto 5.1 K/mm3 (1.3-6.7); Neutrophils Percent Auto 63.5 % (45.5-73.1); Platelet Count Result 53 k/mm3 (150-375); Red Blood Count 4.14 M/mm3 (4.6-6.20); Red Cell Distribution Width 11.5 % (11.5-14.5); White Blood Count 8.1 K/mm3 (4.5-10.0)
== END 2022-10-21 14:36 | disposition home or self-care (01) ==
PROVIDERS: PCP Family Medicine; Visit Provider Internal Medicine Hematology & Oncology
DX: D69.59 Other secondary thrombocytopenia (principal)
CPT/HCPCS: 36415; 85025; 85055

== ENCOUNTER 2022-10-26 17:41 | Emergency (ER) | payer MEDICARE, SELFPAY ==
--- NOTE | ~2022-10-26 | CT_ITS ---
EXAMINATION: CT cervical spine wo con DATE: 10/26/2022 18:51 INDICATION: fall TECHNIQUE: Computed tomography (CT) of the cervical spine was performed without intravenous contrast. Automated exposure control and iterative reconstruction technique were employed. The dose-length pro duct was 360.39 mGy-cm. COMPARISON: None. FINDINGS: Vertebral Body Alignment: Intact. Mild reversal of the cervical lordosis centered at C5-6 Craniocervical and atlantoaxial alignment: Moderate degenerative change. Alignment intact. Osseous structures/fracture: No evidence of a lytic or blastic process in the visualized spine. No e vidence of acute fracture. Cervical soft tissues: The paraspinal soft tissues planes are maintained. Degenerative changes: Degenerative changes, without severe neural foraminal or central canal narrowin g. IMPRESSION: No acute fracture or traumatic malalignment in the cervical spine. Reviewed, dictated and finalized at location K.
--- NOTE | ~2022-10-26 | CT_ITS ---
EXAMINATION: CT brain wo con DATE: 10/26/2022 18:49 INDICATION: fall/hit head . TECHNIQUE: Computed tomography (CT) of the head was performed without intravenous contrast. The mA wa s adjusted according to patient size. Iterative reconstruction technique was employed. The dose-lengt h product was 605.33 mGy-cm. COMPARISON: None. FINDINGS: No acute intracranial hemorrhage or extra-axial fluid collection. No hydrocephalus, mass, or herniation. No acute ischemic infarct. Unremarkable dural venous sinus attenuation. No acute osseous abnormality. Small posterior scalp contusion/laceration. Right maxillary mucosal thickening, air-fluid level, and surrounding sclerosis, the remaining aerated spaces are clear. Moderate atrophy and chronic white matter change. Atherosclerotic intracranial calcification. IMPRESSION: No acute intracranial process. Acute on chronic right maxillary sinusitis. Reviewed, dictated and finalized at location K.
--- NOTE | ~2022-10-26 | XR_ITS ---
Clinical Indication: Syncope AP and lateral views of the chest: Comparison: 02/01/2022 Findings: The lungs are clear, without evidence of focal consolidation or pleural effusion. Cardiome diastinal silhouette is within normal limits. Bones and soft tissues are unremarkable. Impression: Normal chest. Reviewed, dictated and finalized at location . Impression: Normal chest.
[2022-10-26 17:45] VITALS: BP 121/72; PULSE 67; RESP 18; TEMP 36.2; O2SAT 100
--- NOTE | 2022-10-26 17:46 | ECG_ITS ---
Measurements Intervals [place] Rate: 61 P: 55 [place]: 203 QRS: -49 QRSD: 99 T: 11 QT: 446 QTc: 450 Interpretive Statements SINUS RHYTHM PATTERN CONSISTENT WITH PULMONARY DISEASE LEFT ANTERIOR FASCICULAR BLOCK [QRS AXIS <= -45, QR IN I, RS IN II] NONSPECIFIC T-WAVE ABNORMALITY ABNORMAL ECG COMPARED TO ECG 01/31/2022 23:06:42 SINUS RHYTHM NOW PRESENT LEFT ANTERIOR FASCICULAR BLOCK NOW PRESENT Electronically Signed On 10-27-2022 9:15:31 CDT by Vinnie Matthews M.D.
[2022-10-26 18:17] LABS: Basophils Absolute Auto 0.1 K/mm3 (0.0-0.1); Basophils Percent Auto 0.7 % (0.2-1.2); Eosinophils Absolute Auto 0.1 K/mm3 (0-0.3); Eosinophils Percent Auto 1.5 % (0-4.4); Hematocrit 45.5 % (42.0-52.0); Hemoglobin 15.7 g/dL (14.0-18.0); Immature Granulocyte Absolute 0.03 K/mm3 (0.00-0.031); Immature Granulocyte Percent A 0.4 % (0-0.5); Immature Platelet Fraction Pct 22.8 % (0.9-11.2); Lymphocytes Absolute Auto 1.95 K/mm3 (0.9-3.2); Mean Corpuscular HGB Conc 34.5 g/dl (32-36); Mean Corpuscular Hemoglobin 36.5 pg (26-34); Mean Corpuscular Volume 105.8 fl (80-100); Mean Platelet Volume 14.5 fl (7.4-10.4); Monocytes Absolute Auto 0.9 K/mm3 (0.1-0.6); Neutrophils Absolute Auto 5.4 K/mm3 (1.3-6.7); Neutrophils Percent Auto 63.4 % (45.5-73.1); Platelet Count Result 36 k/mm3 (150-375); Red Cell Distribution Width 12.1 % (11.5-14.5); White Blood Count 8.5 K/mm3 (4.5-10.0)
[2022-10-26 18:24] LABS: Alanine Aminotransferase 41 U/L (6-50); Albumin Level 3.9 g/dL (3.5-5.1); Alkaline Phosphatase 111 U/L (38-126); Anion Gap 11 mmol/L (8-16); Aspartate Amino Transferase 90 U/L (17-59); Bilirubin,Total 1.2 mg/dL (0.2-1.3); Blood Urea Nitrogen 8 mg/dL (9-20); Carbon Dioxide 24 mmol/L (22-30); Chloride 101 mmol/L (98-107); Estimated CRCL calculation 69 ml/min; Estimated Glomerular Filt Rate > 60; Glucose 109 mg/dL (65-110); Potassium 4.2 mmol/L (3.4-5.0); Sodium 136 mmol/L (137-145)
[2022-10-26 18:52] LABS: Schistocytes None Seen (NORMAL)
[2022-10-26 18:53] LABS: Anisocytosis 1+ (NORMAL); Basophilic Stippling 1+ (NORMAL); Large Platelets Present; Platelet Estimate Decreased (Adequate)
[2022-10-26 20:57] VITALS: BP 121/81; PULSE 71; TEMP 36.5; O2SAT 100
[2022-10-26 23:34] VITALS: BP 139/85; PULSE 56; RESP 18; O2SAT 100
[2022-10-26 23:35] VITALS: PULSE 56
[2022-10-27] VITALS (8 sets, daily range): BP systolic 102–124; BP diastolic 61–89; PULSE 58–71; RESP 15–22; O2SAT 96–100
--- NOTE | 2022-10-27 00:49 | ED.SYNCOPE ---
HPI - Syncope General Chief Complaint: Syncope <CHIQUITA Hong Last Filed: 10/27/22 05:02> Stated Complaint: passed out <CHIQUITA Hong Last Filed: 10/27/22 05:02> Time Seen by Provider: 10/27/22 00:11 <CHIQUITA Hong Last Filed: 10/27/22 05:02> Source: patient <CHIQUITA Hong Last Filed: 10/27/22 05:02> Mode of arrival: ambulatory <CHIQUITA Hong Last Filed: 10/27/22 05:02> Limitations: no limitations <CHIQUITA Hong Last Filed: 10/27/22 05:02> History of Present Illness HPI narrative: Patient is a 67-year-old male, with PMH of AFIB, VTACH, ITP, who presents to the ED with report of syncope. Patient reports he was outside of his house today talking to his neighbor when he turned to walk back towards his house and suddenly had a syncopal episode. This was witnessed by patient's neighbor. Patient fell to the ground and sustained an abrasion to his posterior scalp. He only lost consciousness for a brief period. His daughter then brought him here for further evaluation. Patient denies any prodromal or warning signs prior to the syncopal episode. He notes a history of similar syncopal episodes last year that were thought to be related to a cardiac arrhythmia. Patient wore a LifeVest for a short period of time last year before undergoing cardiac ablation with Dr. Don Everett (filler room attendant with [facility]). Patient states he has not had any issues since then. They did briefly discuss placing an AICD, however this not was performed. Patient states he feels fine currently. Denies any WILL, dizziness, lightheadedness, CP, SOB, N/V, abdominal pain, BLE pain. <CHIQUITA Hong Last Filed: 10/27/22 05:02> Related Data Home Medications: Home Medications Medication Instructions Recorded Confirmed Allergy (diphenhydramine) 25 mg PO DAILY PRN Allergy Symptoms 01/28/22 07/12/22 <Carla Garrison PA-C - Last Filed: 10/27/22 05:02> Allergies/Adverse Reactions: Allergies Allergy/AdvReac Type Severity Reaction Status Date / Time No Known Allergies Allergy Verified 10/27/22 01:03 <Carla Garrison PA-C - Last Filed: 10/27/22 05:02> Review of Systems Review of Systems: CONSTITUTIONAL: Denies fever, chills, or sweats. EYES: Denies visual changes. CARDIOVASCULAR: Denies chest pain, palpitations, or edema. RESPIRATORY: Denies dyspnea. GASTROINTESTINAL: Denies abdominal pain, nausea, vomiting, or diarrhea. GENITOURINARY: Denies dysuria or hematuria. MUSCULOSKELETAL: Denies back pain, joint pain, or myalgia. NEUROLOGIC: See HPI. <Carla Garrison PA-C - Last Filed: 10/27/22 05:02> All systems reviewed & are unremarkable except as noted in HPI and below <Carla Garrison PA-C - Last Filed: 10/27/22 05:02> COUNTS INCLUDE 234 BEDS AT THE [facility] Past Medical History Medical History: Medical History Acute ITP Atrial fibrillation with rapid ventricular response Erectile dysfunction Hypertension Sustained ventricular tachycardia Syncope and collapse Ventricular tachycardia <Carla Garrison PA-C - Last Filed: 10/27/22 05:02> Surgical History Surgical History: Surgical History History of appendectomy History of bone marrow biopsy (09/2015) 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 <Carla Garrison PA-C - Last Filed: 10/27/22 05:02> Family History Family History: Family History Mother Family history of cardiovascular disease Chronic obstructive pulmonary disease Father Malignant neoplasm of prostate Coronary artery disease Cerebrovascular accident Diabetes mellitus Heart disease <Carla Garrison PA-C - Last Filed: 10/27/22 05:02> Social
[2022-10-27 01:34] LABS: NT Pro B Type Natriuretic Pept 581 pg/mL (19.9-100)
[2022-10-27 01:37] LABS: Troponin I < 0.012 ng/mL (0.000-0.034)
--- NOTE | 2022-10-27 03:45 | PC.NURSE ---
this RN called [employer] for report on interrogation on [employer] loop recorder for uploaded event, they will have someone call back w/ report results
[2022-10-27 04:18] LABS: Magnesium 1.8 mg/dL (1.6-2.3)
== END 2022-10-27 07:44 | disposition home or self-care (01) ==
PROVIDERS: General Practice; Physician Assistant; Emergency Provider Emergency Medicine
DX: R55 Syncope and collapse (principal); I48.91 Unspecified atrial fibrillation; I10 Essential (primary) hypertension; D69.3 Immune thrombocytopenic purpura; Z77.22 Contact with and (suspected) exposure to environmental tobacco smoke (acute) (chronic); I44.4 Left anterior fascicular block; R94.31 Abnormal electrocardiogram [ECG] [EKG]; J01.00 Acute maxillary sinusitis, unspecified; J32.0 Chronic maxillary sinusitis
CPT/HCPCS: 36415; 70450; 71046; 72125; 80053; 83735; 83880; 84484; 85025; 85055; 93005; 99284

== ENCOUNTER 2023-01-18 12:02 | Outpatient (CLI) | payer MEDICARE, SELFPAY ==
[2023-01-18 13:00] LABS: Hematocrit 41.1 % (42.0-52.0); Hemoglobin 13.8 g/dL (14.0-18.0); Immature Platelet Fraction Pct 33.4 % (0.9-11.2); Mean Corpuscular HGB Conc 33.6 g/dl (32-36); Mean Corpuscular Hemoglobin 35.1 pg (26-34); Mean Corpuscular Volume 104.6 fl (80-100); Platelet Count Result 30 k/mm3 (150-375); Red Blood Count 3.93 M/mm3 (4.6-6.20); Red Cell Distribution Width 12.1 % (11.5-14.5)
[2023-01-18 17:19] LABS: Alanine Aminotransferase 15 U/L (6-50); Albumin Level 4.1 g/dL (3.5-5.1); Alkaline Phosphatase 62 U/L (38-126); Anion Gap 11 mmol/L (8-16); Aspartate Amino Transferase 25 U/L (17-59); Blood Urea Nitrogen 12 mg/dL (9-20); Calcium 9.2 mg/dL (8.4-10.2); Carbon Dioxide 23 mmol/L (22-30); Chloride 107 mmol/L (98-107); Cholesterol 163 mg/dL (0-200); Estimated Glomerular Filt Rate > 60; Glucose 93 mg/dL (65-110); HDL Direct 58 mg/dL; Potassium 4.2 mmol/L (3.4-5.0); Sodium 141 mmol/L (137-145); Triglycerides 67 mg/dL (<150)
[2023-01-18 17:30] LABS: LDL Cholesterol Direct 87 mg/dL
[2023-01-18 17:49] LABS: Prostate Specific Antigen 0.6 ng/mL (< OR = 4.0)
== END 2023-01-18 12:03 | disposition home or self-care (01) ==
LOC: ANHLAB 12:06
PROVIDERS: PCP Family Medicine; Visit Provider Physician Assistant Medical
DX: R53.83 Other fatigue (principal); E78.2 Mixed hyperlipidemia; Z12.5 Encounter for screening for malignant neoplasm of prostate
CPT/HCPCS: 36415; 80053; 80061; 84153; 85027; 85055; G0103

== ENCOUNTER 2023-02-07 14:37 | Outpatient (CLI) | payer MEDICARE, SELFPAY ==
[2023-02-07 14:58] LABS: Basophils Absolute Auto 0.1 K/mm3 (0.0-0.1); Basophils Percent Auto 0.6 % (0.2-1.2); Eosinophils Absolute Auto 0.3 K/mm3 (0-0.3); Eosinophils Percent Auto 2.8 % (0-4.4); Hematocrit 39.5 % (42.0-52.0); Hemoglobin 13.8 g/dL (14.0-18.0); Immature Granulocyte Absolute 0.03 K/mm3 (0.00-0.031); Immature Granulocyte Percent A 0.3 % (0-0.5); Immature Platelet Fraction Pct 21.3 % (0.9-11.2); Lymphocytes Absolute Auto 1.73 K/mm3 (0.9-3.2); Lymphocytes Percent Auto 19.5 % (18.3-44.2); Mean Corpuscular HGB Conc 34.9 g/dl (32-36); Mean Corpuscular Volume 100.3 fl (80-100); Mean Platelet Volume 13.6 fl (7.4-10.4); Monocytes Percent Auto 11.4 % (2.6-8.5); Neutrophils Absolute Auto 5.8 K/mm3 (1.3-6.7); Neutrophils Percent Auto 65.4 % (45.5-73.1); Platelet Count Result 40 k/mm3 (150-375); Red Blood Count 3.94 M/mm3 (4.6-6.20); Red Cell Distribution Width 11.9 % (11.5-14.5); White Blood Count 8.9 K/mm3 (4.5-10.0)
== END 2023-02-07 14:38 | disposition home or self-care (01) ==
LOC: ANHLAB 14:45
PROVIDERS: PCP Family Medicine; Visit Provider Internal Medicine Hematology & Oncology
DX: D69.59 Other secondary thrombocytopenia (principal)
CPT/HCPCS: 36415; 85025; 85055

== ENCOUNTER 2023-05-10 13:08 | Outpatient (CLI) | payer MEDICARE, SELFPAY ==
[2023-05-10 13:25] LABS: Basophils Absolute Auto 0.1 K/mm3 (0.0-0.1); Basophils Percent Auto 1.1 % (0.2-1.2); Eosinophils Absolute Auto 0.5 K/mm3 (0-0.3); Eosinophils Percent Auto 6.3 % (0-4.4); Hematocrit 40.6 % (42.0-52.0); Hemoglobin 14.2 g/dL (14.0-18.0); Immature Granulocyte Absolute 0.02 K/mm3 (0.00-0.031); Immature Granulocyte Percent A 0.3 % (0-0.5); Immature Platelet Fraction Pct 20.7 % (0.9-11.2); Lymphocytes Absolute Auto 2.06 K/mm3 (0.9-3.2); Mean Corpuscular Hemoglobin 34.3 pg (26-34); Mean Corpuscular Volume 98.1 fl (80-100); Mean Platelet Volume 13.1 fl (7.4-10.4); Monocytes Absolute Auto 0.9 K/mm3 (0.1-0.6); Monocytes Percent Auto 11.7 % (2.6-8.5); Neutrophils Absolute Auto 3.9 K/mm3 (1.3-6.7); Neutrophils Percent Auto 52.6 % (45.5-73.1); Platelet Count Result 46 k/mm3 (150-375); Red Blood Count 4.14 M/mm3 (4.6-6.20); Red Cell Distribution Width 12.5 % (11.5-14.5); White Blood Count 7.4 K/mm3 (4.5-10.0)
[2023-05-10 13:25] LABS: Blood Urea Nitrogen 11 mg/dL (8-26); Carbon Dioxide 26 mmol/L (22-30); Chloride 104 mmol/L (98-109); Estimated Glomerular Filt Rate > 60; Glucose 97 mg/dL (70-105); Ionized Calcium (POC) 1.18 mmol/L (1.11-1.31); Sodium 141 mmol/L (138-146)
== END 2023-05-10 13:09 | disposition home or self-care (01) ==
LOC: ANHLAB 13:10
PROVIDERS: PCP Family Medicine; Visit Provider Internal Medicine Hematology & Oncology
DX: D69.59 Other secondary thrombocytopenia (principal)
CPT/HCPCS: 36415; 80047; 85025; 85055

== ENCOUNTER 2023-08-19 12:34 | Outpatient (CLI) | payer MEDICARE, SELFPAY ==
[2023-08-19 12:57] LABS: Cholesterol 170 mg/dL (0-200); HDL Direct 78 mg/dL; Triglycerides 113 mg/dL (<150)
[2023-08-19 13:07] LABS: LDL Cholesterol Direct 91 mg/dL
== END 2023-08-19 12:35 | disposition home or self-care (01) ==
LOC: ANHLAB 12:36
PROVIDERS: PCP Family Medicine; Visit Provider Physician Assistant Medical
DX: E78.2 Mixed hyperlipidemia (principal)
CPT/HCPCS: 36415; 80061

== ENCOUNTER 2023-09-09 10:20 | Outpatient (CLI) | payer MEDICARE, SELFPAY ==
[2023-09-09 10:39] LABS: Basophils Absolute Auto 0.1 K/mm3 (0.0-0.1); Basophils Percent Auto 0.8 % (0.2-1.2); Eosinophils Absolute Auto 0.3 K/mm3 (0-0.3); Eosinophils Percent Auto 4.8 % (0-4.4); Hematocrit 41.1 % (42.0-52.0); Hemoglobin 14.6 g/dL (14.0-18.0); Immature Granulocyte Absolute 0.02 K/mm3 (0.00-0.031); Immature Granulocyte Percent A 0.3 % (0-0.5); Lymphocytes Percent Auto 27.6 % (18.3-44.2); Mean Corpuscular HGB Conc 35.5 g/dl (32-36); Mean Corpuscular Hemoglobin 33.8 pg (26-34); Mean Corpuscular Volume 95.1 fl (80-100); Mean Platelet Volume 12.1 fl (7.4-10.4); Monocytes Absolute Auto 0.7 K/mm3 (0.1-0.6); Monocytes Percent Auto 10.4 % (2.6-8.5); Neutrophils Absolute Auto 3.7 K/mm3 (1.3-6.7); Neutrophils Percent Auto 56.1 % (45.5-73.1); Platelet Count Result 54 k/mm3 (150-375); Red Blood Count 4.32 M/mm3 (4.6-6.20); Red Cell Distribution Width 14.8 % (11.5-14.5); White Blood Count 6.5 K/mm3 (4.5-10.0)
== END 2023-09-09 10:21 | disposition home or self-care (01) ==
LOC: ANHLAB 10:22
PROVIDERS: PCP Family Medicine; Visit Provider Internal Medicine Hematology & Oncology
DX: D69.59 Other secondary thrombocytopenia (principal)
CPT/HCPCS: 36415; 85025

== ENCOUNTER 2024-03-13 11:31 | Outpatient (CLI) | payer MEDICARE, SELFPAY ==
[2024-03-13 11:50] LABS: Basophils Absolute Auto 0.1 K/mm3 (0.0-0.1); Basophils Percent Auto 0.8 % (0.2-1.2); Eosinophils Absolute Auto 0.4 K/mm3 (0-0.3); Eosinophils Percent Auto 4.5 % (0-4.4); Hematocrit 42.2 % (42.0-52.0); Hemoglobin 14.8 g/dL (14.0-18.0); Immature Granulocyte Absolute 0.04 K/mm3 (0.00-0.031); Immature Granulocyte Percent A 0.5 % (0-0.5); Immature Platelet Fraction Pct 28.3 % (0.9-11.2); Lymphocytes Absolute Auto 1.64 K/mm3 (0.9-3.2); Lymphocytes Percent Auto 19.6 % (18.3-44.2); Mean Corpuscular HGB Conc 35.1 g/dl (32-36); Mean Corpuscular Hemoglobin 36.1 pg (26-34); Mean Corpuscular Volume 102.9 fl (80-100); Mean Platelet Volume 14.2 fl (7.4-10.4); Monocytes Percent Auto 12.4 % (2.6-8.5); Neutrophils Absolute Auto 5.2 K/mm3 (1.3-6.7); Neutrophils Percent Auto 62.2 % (45.5-73.1); Platelet Count Result 54 k/mm3 (150-375); Red Cell Distribution Width 13.1 % (11.5-14.5); White Blood Count 8.4 K/mm3 (4.5-10.0)
[2024-03-13 11:51] LABS: Blood Urea Nitrogen 9 mg/dL (8-26); Carbon Dioxide 24 mmol/L (22-30); Chloride 106 mmol/L (98-109); Estimated Glomerular Filt Rate > 60; Glucose 109 mg/dL (70-105); Ionized Calcium (POC) 1.22 mmol/L (1.11-1.31); Potassium 3.8 mmol/L (3.5-4.9); Sodium 142 mmol/L (138-146)
== END 2024-03-13 11:32 | disposition home or self-care (01) ==
LOC: ANHLAB 11:33
PROVIDERS: PCP Family Medicine; Visit Provider Internal Medicine Hematology & Oncology
DX: D69.59 Other secondary thrombocytopenia (principal)
CPT/HCPCS: 36415; 80047; 85025; 85055

== ENCOUNTER 2024-08-21 22:47 | Emergency (ER) | payer MEDICARE, SELFPAY ==
--- NOTE | ~2024-08-21 | CT_ITS ---
History: Fall PROCEDURE: CT cervical spine and facial bones without intravenous contrast. COMPARISON: 10/26/2022 TECHNIQUE: Multiple contiguous axial images of the cervical spine and facial bones were performed without the ad ministration of intravenous contrast. DLP: 41 mGy-cm FINDINGS: Straightening and slight reversal of the normal curvature of the cervical spine is identified, likely muscular in origin. Degenerative disease is identified at the levels of C5/C6 and C6/C7 with osteophyte formation, disc s pace narrowing, endplate changes and facet arthropathy. Acute fracture of the left limb of the bifid posterior spinous process of the vertebral body of C5. No additional acute fractures are present within the cervical spine. The bilateral lung apices are unremarkable. No soft tissue abnormality is present. The airway is patent. Frontal scalp hematoma is identified. Soft tissue deformity within the upper lip without underlying fracture. Impression: Straightening and slight reversal of the normal curvature of the cervical spine, likely muscular in o rigin. Acute fracture of the left limb of the bifid posterior spinous process of the vertebral body of C5. No additional acute fracture deformities are present within the cervical spine. No acute facial bone fractures are present. Reviewed, dictated and finalized at location A. Impression: Straightening and slight reversal of the normal curvature of the cervical spine , likely muscular in origin. Acute fracture of the left limb of the bifid posterior spinous process of the v ertebral body of C5. No additional acute fracture deformities are present within the cervical spine. No acute facial bone fractures are present.
--- NOTE | ~2024-08-21 | CT_ITS ---
History: Fall PROCEDURE: CT head without contrast. COMPARISON: 10/26/2022 TECHNIQUE: Axial imaging of the head performed from the skull base to the vertex without IV contrast. Sagittal a nd coronal reformations obtained. DLP: 681 mGy-cm FINDINGS: The ventricles are normal in size, shape and position. There is no mass, mass effect or midline shift. There is no abnormal extra-axial fluid collection or intracranial hemorrhage. Visualized paranasal sinuses are clear. The mastoid air cells are well aerated. No acute displaced fractures within the overlying cranium. Impression: No acute intracranial hemorrhage or suspicious mass effect. Reviewed, dictated and finalized at location A. Impression: No acute intracranial hemorrhage or suspicious mass effect.
--- NOTE | ~2024-08-21 | XR_ITS ---
CHEST RADIOGRAPH, PA AND LATERAL CLINICAL HISTORY: Fall COMPARISON: 10/27/2022 TECHNIQUE: PA and lateral views of the chest. FINDINGS The cardiomediastinal silhouette is unremarkable. The lungs are clear. IMPRESSION: No focal infiltrate or effusion. Reviewed, dictated and finalized at location A.
[2024-08-21 22:50] VITALS: BP 108/84; PULSE 63; RESP 14; TEMP 36.5; O2SAT 99
--- NOTE | 2024-08-21 22:54 | ECG_ITS ---
Test Date: 2024-08-21 23:00:12 Measurements Intervals [place] Rate: 60 P: 52 WV: 301 QRS: -34 QRSD: 97 T: 11 QT: 411 QTc: 414 Interpretive Statements SINUS RHYTHM WITH FIRST DEGREE AV BLOCK LEFT AXIS DEVIATION PATTERN CONSISTENT WITH PULMONARY DISEASE BASELINE ARTIFACT- I, III, AVR, AVL, AVF BORDERLINE ECG No previous ECG available for comparison Electronically Signed On 08-22-2024 06:16:22 CDT by Benjamin Collier D.O.
[2024-08-21 23:05] VITALS: O2SAT 97
[2024-08-21 23:12] LABS: Basophils Absolute Auto 0.1 K/mm3 (0.0-0.1); Basophils Percent Auto 0.6 % (0.2-1.2); Eosinophils Absolute Auto 0.5 K/mm3 (0-0.3); Eosinophils Percent Auto 5.9 % (0-4.4); Hematocrit 40.8 % (42.0-52.0); Hemoglobin 14.2 g/dL (14.0-18.0); Immature Granulocyte Absolute 0.02 K/mm3 (0.00-0.031); Immature Granulocyte Percent A 0.3 % (0-0.5); Immature Platelet Fraction Pct 20.2 % (0.9-11.2); Lymphocytes Absolute Auto 2.93 K/mm3 (0.9-3.2); Lymphocytes Percent Auto 37.8 % (18.3-44.2); Mean Corpuscular HGB Conc 34.8 g/dl (32-36); Mean Corpuscular Hemoglobin 34.5 pg (26-34); Mean Corpuscular Volume 99.3 fl (80-100); Mean Platelet Volume 12.5 fl (7.4-10.4); Monocytes Absolute Auto 1.1 K/mm3 (0.1-0.6); Monocytes Percent Auto 13.8 % (2.6-8.5); Neutrophils Absolute Auto 3.2 K/mm3 (1.3-6.7); Neutrophils Percent Auto 41.6 % (45.5-73.1); Platelet Count Result 58 k/mm3 (150-375); Red Blood Count 4.11 M/mm3 (4.6-6.20); Red Cell Distribution Width 14.2 % (11.5-14.5); White Blood Count 7.8 K/mm3 (4.5-10.0)
[2024-08-21 23:17] VITALS: BP 106/75; PULSE 68; RESP 16; O2SAT 97
[2024-08-21 23:40] LABS: Alanine Aminotransferase 23 U/L (6-50); Albumin Level 4.2 g/dL (3.5-5.1); Alkaline Phosphatase 49 U/L (38-126); Anion Gap 14 mmol/L (4-12); Aspartate Amino Transferase 31 U/L (17-59); Bilirubin,Total 0.4 mg/dL (0.2-1.3); Blood Urea Nitrogen 10 mg/dL (9-20); Calcium 8.6 mg/dL (8.4-10.2); Carbon Dioxide 18 mmol/L (22-30); Chloride 104 mmol/L (98-107); Estimated CRCL calculation 71 ml/min; Estimated Glomerular Filt Rate > 60; Glucose 100 mg/dL (65-110); Sodium 136 mmol/L (137-145); Total Protein 7.3 g/dL (6.3-8.2)
--- NOTE | 2024-08-22 00:23 | ED_ITS ---
HPI - General Adult General Chief complaint: Syncope Stated complaint: fall, hematoma to forhead, lac to R forhead Time Seen by Provider: 08/21/24 23:03 History of Present Illness HPI narrative: 68-year-old male present to the emergency department for evaluation after having a syncopal episode secondary to alcohol consumption. Patient reports he stood up felt dizzy fell forward struck his face resulting in a laceration to his forehead and upper lip. Patient denies any pain or injury. Patient is alert and appropriate at time of evaluation. Related Data Home Medications ?Medication ?Instructions ?Recorded ?Confirmed ?Last Taken ?Type Allergy (diphenhydramine) 25 mg PO DAILY PRN Allergy Symptoms 01/28/22 08/20/24 Unknown History Allergies Allergy/AdvReac Type Severity Reaction Status Date / Time No Known Allergies Allergy Verified 08/21/24 22:48 Review of Systems 2 Review of Systems: All systems reviewed & are unremarkable except as noted in HPI and below PMFSH Past Medical History Medical History (Updated 08/22/24 @ 00:29 by Alex Escobedo MD) Sustained ventricular tachycardia Syncope and collapse Ventricular tachycardia Acute ITP Erectile dysfunction Hypertension Surgical History Surgical History History of appendectomy History of bone marrow biopsy (09/2015) 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 Family History Family History Mother Family history of cardiovascular disease Chronic obstructive pulmonary disease Father Malignant neoplasm of prostate Coronary artery disease Cerebrovascular accident Diabetes mellitus Heart disease Social History Social History Social History: Surrogate medical decision maker: Code status: Smoking status: Never smoker Second hand tobacco smoke exposure: Yes (mother used to smoke) Alcohol intake: current Drinks per week: 21 Alcohol use details: Averages 3 glasses of wine per night. Substance use: never Substance use type: does not use Lack of Transportation: No Lack of Food: Never True Current Housing: I Have Housing Concerned About Future Housing: No Difficulty Paying Gas/Electric Bills: No Difficulty Paying for Meds: No Currently Unemployed: No Education: Trade/Vocational Certificate Difficulty w/ Childcare or Family Care: No Living arrangements: with family Additional occupation/education comments: Works for [employer]. Gender identity (if verbalized by the patient): Male Spiritual care concerns: No Agree to blood products: Yes Exam 2 Narrative: APPEARANCE: Well appearing, no pain, no distress, well-nourished. HEAD: normocephalic, hematoma and laceration to forehead, abrasion to nose and laceration to lip. EYES: PERRLA/EOMI, conjunctivae clear. NOSE: Normal no drainage EARS:TMS clear with good light reflex. THROAT: Pharynx clear, no exudate. NECK: Supple. No adenopathy, no masses. RESPIRATORY: Airway patent, respirations nonlabored. Clear to auscultation bilaterally, no rales, rhonchi, wheezing. CARDIOVASCULAR: Regular rate and rhythm without murmurs rubs or gallops. ABDOMINAL: Soft, nontender, nondistended, normal bowel sounds MUSCULOSKELETAL: Moves all extremities. Strength/ROM intact, No edema, No calf tenderness. NEURO: Alert. Cranial nerves II through XII intact. Good gait. Good coordination SKIN: Warm, dry. Normal Color Course Vital Signs Vital signs: Vital Signs Temperature 97.7 F 08/21/24 22:50 Pulse Rate 63 08/21/24 22:50 Respiratory Rate 14 08/21/24 22:50 Blood Pressure 108/84 08/21/24 22:50 Pulse Oximetry 99 08/21/24 22:50 Oxygen Delivery Room Air 08/21/24 22:50 Temperature 97.6 F 08/22/24 01:08 Pulse Rate 63 08/22/24 01:08 Respiratory Rate 19 08/22/24 01:08 Blood Pressure 115/55 L 08/22/24 01:08 Pulse Oximetry 100 08/22/24 01:08 Oxygen Delivery Room Air 08/21/24 23:05 Procedures Laceration Laceration 1: Date: 08/22/24 Time: 00:23 Site: face Size (cm): 3 Description: linear Depth: simple, single layer Pre-repair: irrigated ====== Skin Level ====== Skin layer closed with: steri strips ====== Subcutaneous Layer ====== ====== Muscle Layer ====== ====== Tendon Layer ====== Laceration 2: Date: 08/22/24 Time: 00:24 Site: lip Side (If applicable): right Size (cm): 5 Description: irregular and involves jonathan border Depth: [id number] Local Anesthetic: lidocaine 1% Amount of anesthesia used (mL): 3 Pre-repair: wound explored, irrigated, irrigated extensively and minor debridement ====== Skin Level ====== Skin layer closed with: nylon Size (cm): 6-0 Number of sutures: 5 Technique: simple, interrupted ====== Subcutaneous Layer ====== Subcutaneous layer closed with: chromic gut (Used on mucosal membrane of lip) Size: 4-0 Number of sutures: 5 Technique: simple, interrupted ====== Muscle Layer ====== ====== Tendon Layer ====== Medical Decision Making MDM Narrative Medical decision making narrative: 68-year-old male presents emergency department for evaluation after having a near syncopal episode secondary to drinking alcohol. Patient states he stood up felt dizzy fell forward struck his face resulting in a laceration to the right aspect of his forehead and upper lip resulting in a through and through laceration. This was repaired as described in the procedure note. Patient is currently afebrile with no leukocytosis hemoglobin of 14.2 with no acute significant abnormalities on his CMP. Chest x-ray was negative for acute finding. Head CT was negative, facial CT was negative and cervical CT did show possible spinous process fracture of C5. Patient had no tenderness to palpation of his neck and normal range of motion of his neck. Differential Diagnosis Differential Diagnosis: Subdural hematoma, subarachnoid hemorrhage, cervical spine fracture, facial fracture, orthostatic hypotension, vasovagal syncope, alcohol intoxication, cardiac arrhythmia Vital Signs Vital Signs: Vital Signs Temperature 97.7 F 08/21/24 22:50 Pulse Rate 63 08/21/24 22:50 Respiratory Rate 14 08/21/24 22:50 Blood Pressure 108/84 08/21/24 22:50 Pulse Oximetry 99 08/21/24 22:50 Oxygen Delivery Room Air 08/21/24 22:50 Temperature 97.6 F 08/22/24 01:08 Pulse Rate 63 08/22/24 01:08 Respiratory Rate 19 08/22/24 01:08 Blood Pressure 115/55 L 08/22/24 01:08 Pulse Oximetry 100 08/22/24 01:08 Oxygen Delivery Room Air 08/21/24 23:05 Lab Data Lab results reviewed: Yes I reviewed the patient's lab results. 08/21/24 23:05 08/21/24 23:05 Labs: Lab Results 08/21/24 Range/Units 23:05 WBC 7.8 (4.5-10.0) K/mm3 RBC 4.11 L (4.6-6.20) M/mm3 Hgb 14.2 (14.0-18.0) g/dL Hct 40.8 L (42.0-52.0) % MCV 99.3 (80-100) fl MCH 34.5 H (26-34) pg MCHC 34.8 (32-36) g/dl RDW 14.2 (11.5-14.5) % Plt Count 58 L (150-375) k/mm3 MPV 12.5 H (7.4-10.4) fl Immature Gran % (Auto) 0.3 (0-0.5) % Neut % (Auto) 41.6 L (45.5-73.1) % Lymph % (Auto) 37.8 (18.3-44.2) % Charlton % (Auto) 13.8 H (2.6-8.5) % Eos % (Auto) 5.9 H (0-4.4) % Baso % (Auto) 0.6 (0.2-1.2) % Lymph # (Auto) 2.93 (0.9-3.2) K/mm3 Charlton # (Auto) 1.1 H (0.1-0.6) K/mm3 Eos # (Auto) 0.5 H (0-0.3) K/mm3 Baso # (Auto) 0.1 (0.0-0.1) K/mm3 Abs Immat Gran (auto) 0.02 (0.00-0.031) K/mm3 Absolute Neuts (auto) 3.2 (1.3-6.7) K/mm3 Absolute Nucleated RBC 0.000 (0.0-0.012) K/mm3 Nucleated RBC % 0.0 (0.0-0.2) % % Immature Plt Fraction 20.2 H (0.9-11.2) % Sodium 136 L (137-145) mmol/L Potassium 4.0 (3.4-5.0) mmol/L Chloride 104 (98-107) mmol/L Carbon Dioxide 18 L (22-30) mmol/L Anion Gap 14 H (4-12) mmol/L BUN 10 (9-20) mg/dL Creatinine 1.07 (0.7-1.3) mg/dL Estim Creat Clear Calc 71 ml/min Estimated GFR > 60 (59 - ) Glucose 100 (65-110) mg/dL Calcium 8.6 (8.4-10.2) mg/dL Total Bilirubin 0.4 (0.2-1.3) mg/dL AST 31 (17-59) U/L ALT 23 (6-50) U/L Alkaline Phosphatase 49 (38-126) U/L Total Protein 7.3 (6.3-8.2) g/dL Albumin 4.2 (3.5-5.1) g/dL Imaging Data Radiologist's impression: Impressions Head CT 08/21/24 23:46 Impression: No acute intracranial hemorrhage or suspicious mass effect. Head/Cervical Spine/Facial Bones CT 08/21/24 23:47 Impression: Straightening and slight reversal of the normal curvature of the cervical spine, likely muscular in origin. Acute fracture of the left limb of the bifid posterior spinous process of the vertebral body of C5. No additional acute fracture deformities are present within the cervical spine. No acute facial bone fractures are present. Chest X-Ray 08/21/24 23:57 IMPRESSION: No focal infiltrate or effusion. Discharge Plan Discharge Clinical Impression: Syncope, Facial injury, Forehead laceration, Complicated laceration of lip Patient Disposition: Home Condition: Stable Instructions: Antibiotic Form, Care For Your Stitches (DC), Laceration (DC), Skin Adhesive Strips (ED) Additional Instructions: Antibiotic as directed until completed. Sutures need to be removed in 5-7 days. Steri-Strips will fall off on their own. Have close follow-up with your primary care physician. Patient Language: Amharic Prescriptions: New cephalexin 500 mg capsule 500 mg PO Q12H 7 Days Qty: 14 0RF No Action metoprolol tartrate 50 mg tablet 50 mg PO Q12H Qty: 30 0RF Allergy (diphenhydramine) 25 mg PO DAILY PRN (Reason: Allergy Symptoms) Follow-up/Referrals: Sidra Dan MD [Primary Care Provider] -
[2024-08-22] MEDS: LIDOCAINE 1% LOCAL INJ 10 ML VIAL INFILTRATE (00:36)
[2024-08-22 01:08] VITALS: BP 115/55; PULSE 63; RESP 19; TEMP 36.4; O2SAT 100
== END 2024-08-22 00:56 | disposition home or self-care (01) ==
PROVIDERS: Emergency Provider Emergency Medicine; PCP Family Medicine
DX: S01.511A Laceration without foreign body of lip, initial encounter (principal); S01.81XA Laceration without foreign body of other part of head, initial encounter; S12.490A Other displaced fracture of fifth cervical vertebra, initial encounter for closed fracture; R55 Syncope and collapse; I10 Essential (primary) hypertension; Z77.22 Contact with and (suspected) exposure to environmental tobacco smoke (acute) (chronic); I44.0 Atrioventricular block, first degree; R94.31 Abnormal electrocardiogram [ECG] [EKG]; W18.39XA Other fall on same level, initial encounter
CPT/HCPCS: 12052; 36415; 70450; 70486; 71046; 72125; 80053; 85025; 85055; 93005; 99284; J2003

== ENCOUNTER 2024-08-22 09:28 | Outpatient (CLI) | payer MEDICARE, SELFPAY ==
[2024-08-22 10:13] LABS: Alanine Aminotransferase 23 U/L (6-50); Albumin Level 4.2 g/dL (3.5-5.1); Alkaline Phosphatase 59 U/L (38-126); Anion Gap 11 mmol/L (4-12); Aspartate Amino Transferase 35 U/L (17-59); Bilirubin,Total 0.5 mg/dL (0.2-1.3); Blood Urea Nitrogen 7 mg/dL (9-20); Calcium 9.1 mg/dL (8.4-10.2); Carbon Dioxide 21 mmol/L (22-30); Chloride 109 mmol/L (98-107); Cholesterol 167 mg/dL (0-200); Estimated Glomerular Filt Rate > 60; Glucose 96 mg/dL (65-110); HDL Direct 73 mg/dL; Potassium 4.1 mmol/L (3.4-5.0); Sodium 141 mmol/L (137-145); Total Protein 7.5 g/dL (6.3-8.2); Triglycerides 88 mg/dL (<150)
[2024-08-22 10:24] LABS: LDL Cholesterol Direct 72 mg/dL
[2024-08-22 10:43] LABS: Prostate Specific Antigen 1.3 ng/mL (< OR = 4.0)
== END 2024-08-22 09:29 | disposition home or self-care (01) ==
LOC: ANHLAB 09:29
PROVIDERS: PCP Family Medicine; Visit Provider Family Medicine
DX: Z00.00 Encounter for general adult medical examination without abnormal findings (principal); E78.2 Mixed hyperlipidemia; Z12.5 Encounter for screening for malignant neoplasm of prostate
CPT/HCPCS: 36415; 80053; 80061; 84153; G0103

== ENCOUNTER 2024-09-11 13:53 | Outpatient (CLI) | payer MEDICARE, SELFPAY ==
--- OUTSIDE RECORDS SUMMARY | 2024-09-11 13:59 | XMS_ITS | Clinical Summary ---
Author Organization [facility] Address [address] [place] [address] Care Team Providers Care Senior Research Project Manager Name Role Phone Lizette Sewell MD Primary Care Provi floresita Allergies No known active allergies Medications metoprolol succinate (TOPROL XL) 50 mg Extended Release 24 hour tablet Take 50 mg by mouth 2 times daily. 0 Active eltrombopag (PROMACTA) 50 mg TabletIndications:Oth er secondary thrombocytopenia Take 1 Tablet (50 mg) by mouth daily. 30 Tablet 4 0 Active diphenhydrAMINE (BENADRYL) 25 mg capsule Take by mouth. Active amiodarone (CORDARONE) 200 mg tablet Take 200 mg by mouth daily. 2 Active predniSONE (DELTASONE) 10 mg tablet 3 Active Active Problems Problem Noted Date Diagnosed Date Chronic idiopathic thrombocytopenic purpura 11/29 Family History Medical History Relation Name Comments Cancer Father Heart Attack Father Relation Name Status Comments Brother 1 Alive Brother 2 Alive Daughter Alive Father Alive Mother Sister Alive Son Alive Social History Tobacco Use Types Packs/Day Years Used Date Smoking Tobacco: Never Smokeless Tobacco: Never Tobacco Cessation:Counseling Given: Not Answered Alcohol Use Standard Drinks/Week Comments Yes 0 (1 standard drink = 0.6 oz pur e alcohol) OCCASSIONLLY Sex and Gender Information Value Date Recorded Sex Assigned at Not on file Legal Sex Male 2:50 PM CDT Gender Identity Not on file Sexual Orientation Not on file Last Filed Vital Signs Vital Sign Reading Time Taken Comments Blood Pressure 115/78 03/13/2024 11:54 AM EMISSIONS REPAIR TECHNICIAN Pulse 54 03/13/2024 11:54 AM EMISSIONS REPAIR TECHNICIAN Temperature 36.6 C (97.8 F) 03/13/2024 11:54 AM EMISSIONS REPAIR TECHNICIAN Respiratory Rate 16 03/13/2024 11:54 AM EMISSIONS REPAIR TECHNICIAN Oxygen Saturation 95% 03/13/2024 11:54 AM EMISSIONS REPAIR TECHNICIAN Inhaled Oxygen Concentration - - Weight 93.9 kg (207 lb) 03/13/2024 11:54 AM EMISSIONS REPAIR TECHNICIAN Height 180.3 cm (5' 11) 07/16/2021 2:58 PM CDT Body Mass Index 28.87 07/16/2021 2:58 PM CDT Plan of Treatment Upcoming Encounters Date Type Department Care Team (Late st Contact Info) Description 09/11/2024 2:15 PM CDT Office Visit [facility] Oncology and Hematology [facility] [address] [facility] [address] [place] [address] Ike Wallace MD [address] [facility] [address] [place] [address] Health Maintenance Due Date Last Done Comments Pre-Diabetes and Diabetes Screening 1957 DTAP/TDAP/TD VACCINES (1 - Tdap) 1976 COLORECTAL SCREENING 2002 Colorectal Cancer Screening 2002 FIT-DNA Q 3 years 2002 FIT/FOBT Q 1 year 2002 Flex Sig/CT Colonography Q 5 years 2002 PNEUMOCOCCAL VACCINE 50+ YEARS (1 of 1 - PCV) 10/03/19 08 ZOSTER VACCINE (1 of 2) 10/03/2007 Medicare [place]) Prev entative Visit/Annual Wellness Visit 02/29/2024 INFLUENZA VACCINE (#1) 2024 RSV VACCINE (60+ or ) (1 - 1-dose 75+ series) 2032 Insurance [employer] PPO MCR Care Teams Senior Research Project Manager Relationship Specialty Start Date End Date Lizette Sewell MD [address] [place] [id number] PCP - General Family Practice 11/01/19
--- OUTSIDE RECORDS SUMMARY | 2024-09-11 13:59 | XMS_ITS | Referral Summary ---
Author Organization [facility] [place] [address] [place] [address] [address] [place] [address] Care Team Providers Care Fermenter Helper Name Role Phone Sidra Dan MD Primary Care Provider [phone] Encounters Date Type Department Care Team Description 07/26/2024 10:30 AM CDT Office Visit [facility] Cardiology [address] [facility] [address] [place] [address] Chacorta Rodriguez MD Paroxysmal atrial fibrillation (HCC) (Primary Dx); Chronic ITP (idiopathic thrombocytopenia) (HCC); AVNRT (AV selam re-entry tachycardia); H/O cardiac radiofrequency ablation; Status post placement of implantable loop recorder; Lipid screening 07/04/2024 7:00 AM CDT Ancillary Procedure Arrhythmia Center [facility] [facility] [address], [place] [address] Status post placement of implantable loop recorder (Primary Dx); V-tach (HCC) from Last 3 Months Allergies No known active allergies Medications diphenhydramine HCl (ALLERGY MEDICINE ORAL) Take by mouth Active metoprolol tartrate (LOPRESSOR) 50 mg immediate release tablet TAKE 1 TABLET BY MOUTH TWICE A DAY 180 tablet 2 01/30/2024 Active Active Problems Problem Noted Date Diagnosed Date Lipid screening 12/20/2022 AVNRT (AV selam re-entry tachycardia) 12/13/2022 Assessment & Plan (11/16/2023 11:03 AM CDT): S/p EPS, ablation of slow pathway. No recurrence. --Continue ILR f/u H/O cardiac radiofrequency ablation 12/13/2022 Status post placement of implantable loop record er 12/13/2022 Wide-complex tachycardia 02/08/2022 Assessment & Plan (11/09/2022 10:55 AM CDT): S/p EPS with inducible typical AVNRT, slow pathway ablation. No inducible VT. No arrhythmia recurrence since ablation per ILR. --Continue ILR f/u --Continue metoprolol 50 mg BID. This can likely be stopped at next visit if no arrhythmias. Assessment & Plan (05/05/2022 10:44 AM FRAME GATE MORTISER OPERATOR): S/p EP study with inducible, very rapid typical AVNRT. No WCT inducible. Slow pathway ablated, ILR implanted. Now doing well, no recurrence. ILR shows no events. --Decrease metoprolol to 50 mg BID --Continue ILR remote checks quarterly via [employer] Assessment & Plan (02/08/2022 5:18 PM FRAME GATE MORTISER OPERATOR): Relatively prolonged episode of nonsustained WCT on ambulatory monitor lasting 12 seconds. Likely ventricular tachycardia, although cannot exclude SVT with aberrant conduction or preexcited tachycardia. Given recurrent episodes of abrupt syncope, WCT is concerning and VT should be presumed. I have recommended a diagnostic EP study. If VT is induced, or if no arrythmia is inducible, I would recommend proceeding directly to ICD implantation for presume VT/secondary prevention. If SVT is induced, we could address this with ablation. I reviewed my recommendation with the patient. We discussed the procedures in detail. He is at elevated risk for complications due to his ITP. I will communicate with his home energy rater for recommendations for perioperative management. The patient understands and wishes to proceed. --Diagnostic EP study, possible ICD implantation, possible SVT ablation w/anesthesia. --Stop amiodarone (to prevent masking of arrhythmia). --Continue wearable defibrillator until procedure. --Continue metoprolol, taper prior to procedure. Recurrent syncope 02/08/2022 Assessment & Plan (11/16/2023 11:03 AM CDT): Chronic, stable. Probably neurocardiogenic mechanism. NO arrhythmias recorded by ILR --Continue ILR monitoring Assessment & Plan (05/05/2022 10:45 AM FRAME GATE MORTISER OPERATOR): No recurrence. --F/u ILR Assessment & Plan (02/08/2022 5:17 PM FRAME GATE MORTISER OPERATOR): High risk syncope, with red flags. I am concerned about ventricular arrhythmias, given observation of quite long episode of VT on ambulatory monitor and abrupt syncope with no prodrome. As above, will plan to exclude SVT with EPS. If VT is induced, or if no arrhythmia is inducible (likely due to amiodarone), would plan to proceed with ICD. Idiopathic hypotension 11/30/2021 Dehydration 11/30/2021 Black stool 11/30/2021 Chronic ITP (idiopathic thrombocytopenia) 2018 Paroxysmal atrial fibrillation 10/09/2015 Overview (06/04/2016): Unspecified atrial fibrillation Assessment & Plan (11/16/2023 11:02 AM CDT): Chronic, stable. No recent episodes clinically or by ILR monitoring --Continue metoprolol 50 mg BID Assessment & Plan (11/09/2022 10:53 AM CDT): No AF detected by ILR. No symptoms. Low risk for thromboembolism. --Off antiocagulation --Continue remote device f/u quarterly Assessment & Plan (05/05/2022 10:45 AM FRAME GATE MORTISER OPERATOR): No AF recorded by ILR thus far. Recommend stopping amiodarone given low burden and risk of toxicity with chronic exposure. If AF returns, alternative AAD agents or catheter ablation can be considered. --Stop amiodarone --Reduce metoprolol to 50 mg BID --F/u ILR as above Assessment & Plan (02/08/2022 5:15 PM FRAME GATE MORTISER OPERATOR): Long history of paroxysmal AF, infrequent episodes. More episodes recently. Better controlled on amiodarone. [id number]= 0. Anticoagulation not recommended (especially in context of ITP). --Will stop amiodarone for now --Continue metoprolol, taper as instructed --Alternative AAD therapy or ablation can be considered in future if desired. Thrombocytopenia 10/09/2015 Overview (06/04/2016): Thrombocytopenia Immunizations Immunization Administration Dates Next Due Influenza, Unspecified 12/23/2017 Social History Tobacco Use Types Packs/Day Years Used Date Smoking Tobacco: Never Smokeless Tobacco: Never Tobacco Cessation:Counseling Given: Not Answered Alcohol Use Standard Drinks/Week Comments Yes 0 (1 standard drink = 0.6 oz pur e alcohol) AUDIT-C Answer Date Recorded Q1: How often do you have a drink containing alcohol? 4 or more times a week 03/11/2022 Q2: How many drinks containi ng alcohol do you have on a typical day when you are drinking? 3 or 4 Frequency of Binge Drinking Not on file 02/28 Personal Safety Answer Date Recorded Getting School Help Needed Denies 02/10 Sex and Gender Information Value Date Recorded Sex Assigned at Not on file Legal Sex Male 11:43 AM FRAME GATE MORTISER OPERATOR Gender Identity Not on file Sexual Orientation Not on file Last Filed Vital Signs Vital Sign Reading Time Taken Comments Blood Pressure 90/64 07/26/2024 10:29 AM CDT Pulse 57 07/26/2024 10:29 AM CDT Temperature 36.3 C (97.3 F) 03/11/2022 7:26 AM FRAME GATE MORTISER OPERATOR Respiratory Rate 16 03/11/2022 7:26 AM FRAME GATE MORTISER OPERATOR Oxygen Saturation 96% 07/26/2024 10:29 AM CDT Inhaled Oxygen Concentration - - Weight 94.8 kg (209 lb) 07/26/2024 10:29 AM CDT Height 180.3 cm (5' 11) 07/26/2024 10:29 AM CDT Body Mass Index 29.15 07/26/2024 10:29 AM CDT Plan of Treatment Not on file Medical Devices Implanted Type Area Hop Strainer Device Identifier Shelf Expiration Date Model / Serial / Lot [employer] Vascade Mvp 6-12fr Venous Closure [id number] - [id number] - [id number] Implanted:Qty: 1 on 03/11/2022 by Don Everett III, MD at [facility] Coll[employer] 12/16/2023 800-612C- 10U / [id number] / [id number] [employer] Vascade Mvp 6-12fr Venous Closure [id number] - [id number] - [id number] Implanted:Qty: 1 on 03/11/2022 by Don Everett III, MD at [facility] [employer] 12/09/2023 800-612C- 10U / [id number] 18C / [id number] 18C [employer] Vascade Mvp 6-12fr Venous Closure [id number] - [id number] - [id number] Implanted:Qty: 1 on 03/11/2022 by Don Everett III, MD at [facility] [employer] 12/09/2023 800-612C- 10U / [id number] 18C / [id number] 18C [employer] Device Closure Vascade Od5 Fr Femoral Artery [id number] - [id number] - [id number] Implanted:Qty: 1 on 03/11/2022 by Don Everett III, MD at [facility] [employer] 12/08/2023 [id number] -[id number] / [id number] / [id number] [employer] Shanti Lux-Dx Insertable Air Traffic Control Operator [id number] - [id number] - [id number] Implanted:Qty: 1 on 03/11/2022 by Don Everett III, MD at [facility] Implantable Loop Recorder [employer] Shanti 07/15/2023 [id number] / [id number] / Procedures Procedure Name Priority Date/Time Associated Diagnosis Comments POCT LIPID PANEL Routine 07/26/2024 10:2 5 AM CDT Lipid screening DEVICE CHECK - REMOTE Routine 07/04/2024 9:16 AM CDT V-tach (HCC) from Last 3 Months Results * POCT lipid panel (07/26/2024 10:25 AM CDT) Cholesterol, POC 151 <200 MG/DL HDL, POC 77 >=40 mg/dL Triglycerides, POC 66 <=149 mg/dL LDL Cholesterol POC 61 <=129 mg/dL Chol/HDL Ratio, POC 0.8 NONE Non-HDL Cholesterol, POC 74 NONE mg/dL Cholesterol Total, POC 151 30 - 199 mg/dL Capillary blood 07/26/2024 1 0:25 AM CDT Chacorta Rodriguez MD POINT OF CARE TEST ORDE TWAN Final Result * DEVICE CHECK - REMOTE (07/04/2024 9:16 AM CDT) Anatomical Region Laterality Modality Other Narrative 07/12/2024 1:28 PM CDT This patient received a [employer] ICM. They had an remote transmission on July 04, 2024. Device implant indications: March 11, 2022 Device implant date: Ventricular tachycardia Interrogation of the patient's device demonstrates the following: Presenting EGM: Normal sinus rhythm at 77 bpm Battery Status: OK Episodes last 63 days/Comments: (0) symptom events Auto Device detected events of, (0) Pause, (0) Bradycardia, (0) Tachy, (0) AT, (0) AF, NORMAL DEVICE FUNCTION PROGRAMMED Anti-coagulant(s): None Anti-arrhythmic(s): Metoprolol 50 mg b.i.d Plan: 1) Normal [employer] implantable loop recorder evaluation with no new events 2) Continue to monitor remotely [facility] Device Computer Consultant Don Everett III, MD CV CARDIAC SERVICES PROCEDURES Final Result from Last 3 Months Insurance AETNA MEDICARE AETNA MEDICARE [facility] Care Teams Fermenter Helper Relationship Specialty Start Date End Date Sidra Dan MD PCP - General Family Medicine 09/16/23
--- OUTSIDE RECORDS SUMMARY | 2024-09-11 13:59 | XMS_ITS | Clinical Summary ---
Author Organization [facility] [place] [address] [place] [address] Care Team Providers Care Piece Worker Name Role Phone Sidra Dan MD Primary Care Provider [phone] Allergies No known active allergies Medications diphenhydramine [...] arrhythmias. Assessment & Plan (05/05/2022 10:44 AM VASCULAR SURGEON): S/p EP study with inducible, very rapid typical AVNRT. No WCT inducible. Slow pathway ablated, ILR implanted. Now doing well, no recurrence. ILR shows no events. --Decrease metoprolol to 50 mg BID --Continue ILR remote checks quarterly via [facility] Assessment & Plan (02/08/2022 5:18 PM VASCULAR SURGEON): Relatively prolonged episode of nonsustained WCT on [...] his ITP. I will communicate with his materials planner for recommendations for perioperative management. The patient [...] monitoring Assessment & Plan (05/05/2022 10:45 AM VASCULAR SURGEON): No recurrence. --F/u ILR Assessment & Plan (02/08/2022 5:17 PM VASCULAR SURGEON): High risk syncope, with red flags. I [...] quarterly Assessment & Plan (05/05/2022 10:45 AM VASCULAR SURGEON): No AF recorded by ILR thus far. Recommend stopping amiodarone given low burden and risk of toxicity with chronic exposure. If AF returns, alternative AAD agents or catheter ablation can be considered. --Stop amiodarone --Reduce metoprolol to 50 mg BID --F/u ILR as above Assessment & Plan (02/08/2022 5:15 PM VASCULAR SURGEON): Long history of paroxysmal AF, infrequent episodes. More episodes recently. Better controlled on amiodarone. [id number]= 0. Anticoagulation not recommended (especially in context of ITP). --Will stop amiodarone for now --Continue metoprolol, taper as instructed --Alternative AAD therapy or ablation can be considered in future if desired. Thrombocytopenia 10/09/2015 Overview (06/04/2016): Thrombocytopenia Encounters Date Type Department Care Team Description 07/26/2024 10:30 AM CDT Office Visit [facility] Cardiology [address] [place] [address] Chacorta Rodriguez MD Paroxysmal atrial fibrillation (HCC) (Primary Dx); Chronic ITP (idiopathic thrombocytopenia) (HCC); AVNRT (AV selam re-entry tachycardia); H/O cardiac radiofrequency ablation; Status post placement of implantable loop recorder; Lipid screening 07/04/2024 7:00 AM CDT Ancillary Procedure Arrhythmia Center [address] [facility] [address] [place] [address] Status post placement of implantable loop recorder (Primary Dx); V-tach (HCC) from Last 3 Months Immunizations Immunization Administration Dates Next Due Influenza, Unspecified 12/23/2017 Surgical History Surgery Date Site/Laterality Comments COLONOSCOPY APPENDECTOMY TONSILLECTOMY/ADENOIDECTOMY Medical History Medical History Date Comments Atrial fibrillation (HCC) Thrombocytopenia Family History Medical History Relation Name Comments Diabetes Father Father Diabetes mellit us; Other Father Father bypass twice, o ne single and a double; /Alive and well; Asthma Mother Mother Asthma; Emphysema Other Family history of Emphysema; Relation Name Status Comments Father Father Alive Mother Mother (Age 59) Other Social History Tobacco Use Types Packs/Day Years [...] on file Legal Sex Male 11:43 AM VASCULAR SURGEON Gender Identity Not on file Sexual Orientation Not on file Obstetrics History Last Filed Vital Signs Vital Sign Reading Time Taken Comments Blood Pressure 90/64 07/26/2024 10:29 AM CDT Pulse 57 07/26/2024 10:29 AM CDT Temperature 36.3 C (97.3 F) 03/11/2022 7:26 AM VASCULAR SURGEON Respiratory Rate 16 03/11/2022 7:26 AM VASCULAR SURGEON Oxygen Saturation 96% 07/26/2024 10:29 AM CDT Inhaled Oxygen Concentration - - Weight 94.8 kg (209 lb) 07/26/2024 10:29 AM CDT Height 180.3 cm (5' 11) 07/26/2024 10:29 AM CDT Body Mass Index 29.15 07/26/2024 10:29 AM CDT Plan of Treatment Health Maintenance Due Date Last Done Comments Colon Cancer Screening-Colonoscopy 1955 Depression Screening 1955 Hepatitis C Screening 1957 Prostate Cancer Screening-PSA 1957 Hepatitis B Screening 10/03/1975 Pneumococcal vaccine 65+ (1 of 1 - PCV) 10/03/2007 Zoster Vaccine (1 of 2) 10/03/2007 DTaP/Tdap/Td Vaccine (2 - Td or Tdap) 06/05/2022 06/05/2012, 02/12/1999 Well Visit 65+ 2022 Fall Risk Assessment 03/11/2023 03/11/2022 Influenza Vaccine (#1) 2024 9, 12/23/2017, 12/08/2017, Additional history exists Medical Devices Implanted Type Area Forming Tube Selector Device Identifier Shelf Expiration Date Model / Serial / Lot [employer] Vascade Mvp 6-12fr Venous Closure [id number] - [id number] - [id number] Implanted:Qty: 1 on 03/11/2022 by Don Everett III, MD at [facility] [employer] 12/16/2023 800-612C- 10U / [id number] / [id number] 25C [employer] Vascade Mvp 6-12fr Venous Closure [id number] - [id number] - [id number] Implanted:Qty: 1 on 03/11/2022 by Don Everett III, MD at [facility] [employer] 12/09/2023 800-612C- 10U / [id number] 18C / [id number] 18C [employer] Vascade Mvp 6-12fr Venous Closure [id number] - [id number] - [id number] Implanted:Qty: 1 on 03/11/2022 by Don Everett III, MD at [facility] [employer] 12/09/2023 800-612C- 10U / [id number] 18C / [id number] 18C [employer] Device Closure Vascade Od5 Fr Femoral Artery [id number] - [id number] - [id number] Implanted:Qty: 1 on 03/11/2022 by Don Everett III, MD at [facility] [employer] 12/08/2023 700-500DX -05U / [id number] / [id number] [employer] Lux-Dx Insertable Furnace Mechanic Helper M301 - [id number] - [id number] Implanted:Qty: 1 on 03/11/2022 by Don Everett III, MD at [facility] Implantable Loop Recorder [employer] 07/15/2023 M301 / [id number] / Procedures Procedure Name Priority Date/Time Associated [...] Capillary blood 07/26/2024 1 0:25 AM CDT [facility] Vivienne Rodriguez MD POINT OF CARE TEST ORDLincoln TRENT Final Result * DEVICE CHECK - REMOTE (07/04/2024 9:16 AM CDT) Anatomical Region Laterality Modality Other Narrative 07/12/2024 1:28 PM CDT This patient received a [employer] ICM. They had an remote transmission [...] Metoprolol 50 mg b.i.d Plan: 1) Normal [employer] implantable loop recorder evaluation with no new events 2) Continue to monitor remotely [facility] Device Structural Steel Trades Worker Don Everett III, MD CV CARDIAC SERVICES PROCEDURES Final Result from Last 3 Months Insurance AETNA MEDICARE AETNA MEDICARE [employer] [place] Care Teams Piece Worker Relationship Specialty Start Date End Date Sidra Dan MD PCP - General Family Medicine 09/16/23
--- OUTSIDE RECORDS SUMMARY | 2024-09-11 13:59 | XMS_ITS | Encounter Summary ---
Author Organization [facility] Address [address] [place] [address] Phone Care Team Providers Care Classified Ad Clerk Name Role Phone Terrell Maradiaga MD Primary Care Provider + [phone] Lizette Davalos MD Primary Care Provider + [phone] Sharad Gutierrez Primary Care Provider [phone] Bela Phelps Primary Care Provider [phone] Sidra Dan MD Primary Care Provider [phone] Encounter Details Date Type Department Care Team (Late st Contact Info) Description 05/02/2018 Documentation [facility] Oncology [address] [place] [address] Jennifer James CMA Social History Tobacco Use Types Packs/Day Years Used Date Smoking Tobacco: Never Smokeless Tobacco: Never Alcohol Use Standard Drinks/Week Comments Yes 0 (1 standard drink = 0.6 oz pur e alcohol) Sex and Gender Information Value Date Recorded Sex Assigned at Not on file Legal Sex Male 11:43 AM MILL RECORDER Gender Identity Not on file Sexual Orientation Not on file documented as of this encounter Plan of Treatment Not on file documented as of this encounter Visit Diagnoses Not on filedocumented in this encounter Care Teams Classified Ad Clerk Relationship Specialty Start Date End Date Terrell Maradiaga MD [address] [place] [address] PCP - General 10/09/15 10/22/18 Lizette Davalos MD [address] [place] [address] PCP - General Family Practice 10/23/18 08/11/20 Sharad Gutierrez PA [address] [place] [address] PCP - General Physician Terrazzo Roller 08/12/20 04/14/22 Bela Phelps PA [address] [place] [address] PCP - General Family Medicine 04/15/22 09/15/23 Sidra Dan MD [address] [place] [address] PCP - General Family Medicine 09/16/23 documented as of this encounter
[2024-09-11 14:09] LABS: Blood Urea Nitrogen 6 mg/dL (8-26); Carbon Dioxide 22 mmol/L (22-30); Chloride 104 mmol/L (98-109); Estimated Glomerular Filt Rate > 60; Glucose 123 mg/dL (70-105); Ionized Calcium (POC) 1.20 mmol/L (1.11-1.31); Potassium 3.9 mmol/L (3.5-4.9); Sodium 141 mmol/L (138-146)
[2024-09-11 14:11] LABS: Hematocrit 41.6 % (42.0-52.0); Hemoglobin 14.6 g/dL (14.0-18.0); Immature Granulocyte Percent A 0.4 % (0-0.5); Immature Platelet Fraction Pct 21.0 % (0.9-11.2); Lymphocytes Absolute Auto 1.78 K/mm3 (0.9-3.2); Mean Corpuscular HGB Conc 35.1 g/dl (32-36); Mean Corpuscular Hemoglobin 35.4 pg (26-34); Mean Corpuscular Volume 101.0 fl (80-100); Nucleated Red Blood Cells Absolute Auto 0.000 K/mm3 (0.0-0.012); Nucleated Red Blood Cells Perc 0.0 % (0.0-0.2); Platelet Count Result 40 k/mm3 (150-375); Red Blood Count 4.12 M/mm3 (4.6-6.20); White Blood Count 7.4 K/mm3 (4.5-10.0)
== END 2024-09-11 13:54 | disposition home or self-care (01) ==
PROVIDERS: PCP Family Medicine; Visit Provider Internal Medicine Hematology & Oncology
DX: D69.59 Other secondary thrombocytopenia (principal)
CPT/HCPCS: 36415; 80047; 85025; 85055